=== PATIENT | female | born 1985 | race African-American/Black ===

== ENCOUNTER 2017-01-07 02:08 | Emergency (ER) | payer SELFPAY ==
[~2017-01-07] VITALS: Ht 162.6 cm; Wt 77.1 kg
[~2017-01-07 02:08] MED LIST: NKM
[2017-01-07 02:10] VITALS: BP 117/70
[2017-01-07] MEDS ORDERED: Lidocaine 1% MPF 10mg/ml 5ml INJ ONE (03:30)
[2017-01-07] MEDS ORDERED: IBUPROFEN600 MG ORAL (03:44)
[2017-01-07] MEDS ORDERED: Tetanus/Diptheria/Pertussis Vaccine 0.5ml Syr IM ONE (03:45)
[2017-01-07 04:05] VITALS: BP 115/72
--- NOTE | 2017-01-07 07:36 | Emergency Room Report ---
History of Present Illness General Chief Complaint: Laceration Source: Patient Present Illness HPI Patient 31-year-old female who presented after a laceration to her buttocks as well as to her left hand. The patient reportedly was cleaning a sink which subsequently reportedly broke. She reports having injury to her finger and as well as to her right buttock. She denies other injuries. Injury occurred at home. Allergies: Coded Allergies: No Known Allergies (Unverified , 01/07/17) Patient History Past Medical History: see triage record Last Menstrual Period: last week Reviewed Nursing Documentation: PMH: Agreed, PSxH: Agreed Nursing Documentation-PMH Past Medical History: No Stated History Review of Systems All Other Systems: negative except mentioned in HPI Physical Exam Vital Signs Date Time Temp Pulse Resp B/P Pulse Ox O2 Delivery O2 Flow Rate FiO2 01/07/17 01:48 98.6 109 16 117/70 99 Room Air General Appearance: well appearing, no apparent distress, alert, GCS 15 Head: normocephalic, atraumatic ENT: hearing grossly normal, normal voice Neck: full range of motion, supple Respiratory: no respiratory distress, speaking full sentences Cardiovascular #1: normal inspection, normal peripheral pulses, regular rate, rhythm Musculoskeletal: normal inspection, no calf tenderness Neurologic: normal inspection, alert, oriented x3, responsive, normal gait Psychiatric: mood/affect normal Skin: no rash Procedures Laceration/Wound Repair Laceration/Wound Repair : Consent: Verbal Wound's Depth, Shape: superficial Wound Length (cm): 1 Wound Explored: no foreign body removed Irrigated w/ Saline (ccs): 20 Betadine Prep?: Yes Anesthesia: 1% Lidocaine Wound Debrided: minimal Wound Repaired With: sutures Suture Size/Type: 5:0 Number of Sutures: 2 Patient Tolerated: Well Complications: None Medical Decision Making Diagnostic Impression: Primary Impression: Laceration of buttock Additional Impression: Hand laceration ER Course Patient presented for laceration. Differential diagnoses included foreign body , nerve injury, arterial injury among others.X-ray imaging of the right hand 3 view interpreted by me showed normal Without evident fracture or foreign body.The patient is advised to follow up with primary care doctor in 1-2 days. Patient is advised to return if any worsening condition or if any changes in status that are concerning. Other X-Ray Diagnostic Results Other X-Ray Diagnostic Results : # of Views/Limited Vs Complete: 3 View Indication: Pain EP Interpretation: Yes Interpretation: no dislocation, no soft tissue swelling, no fractures Impression: No acute disease Interpreting ER Provider: Electronically signed by Dr. Joon Carl M.D. Last Vital Signs Date Time Temp Pulse Resp B/P Pulse Ox O2 Delivery O2 Flow Rate FiO2 01/07/17 04:05 98.4 98 15 115/72 100 Room Air Disposition: HOME, SELF-CARE Condition: Stable Scripts Ibuprofen* (MOTRIN*) 600 Mg Tablet 600 MG ORAL Q8H Y for For Pain, #30 TAB 0 Refills Prov: Joon Carl 01/07/17 Referrals: NOT CHOSEN IPA/MD,REFERRING (PCP) Patient Instructions: Laceration Care, Adult, Nonsutured Laceration Care Joon Carl Jan 07, 2017 07:36
--- NOTE | 2017-01-07 11:08 | Diagnostic Imaging Report ---
Indication: PAIN Technique: 3 views left hand Comparison: none Findings: No acute fractures. No dislocations. Joint spaces are preserved. Impression: Negative
== END 2017-01-07 04:05 | disposition home or self-care (01) ==
LOC: EDBD 02:08 → EMR 02:40
DX: S31.811A Laceration without foreign body of right buttock, initial encounter (principal); S61.412A Laceration without foreign body of left hand, initial encounter; W45.8XXA Other foreign body or object entering through skin, initial encounter; Y93.9 Activity, unspecified; Y92.009 Unspecified place in unspecified non-institutional (private) residence as the place of occurrence of the external cause; Z23 Encounter for immunization
CPT/HCPCS: 90471; 90715; 96372

== ENCOUNTER 2017-02-24 15:52 | Emergency (ER) | payer MEDICAID ==
[~2017-02-24] VITALS: Ht 160 cm; Wt 79.4 kg
[~2017-02-24 15:52] MED LIST changes: +IBUPROFEN600 MG ORAL
[2017-02-24 16:04] VITALS: BP 109/77
[2017-02-24] MEDS ORDERED: NKM (16:09)
[2017-02-24 16:41] LABS: KETONES,URINE NEGATIVE (NEGATIVE); LEUKOCYTE ESTERASE ,URINE 3+ (NEGATIVE); NITRITE,URINE NEGATIVE (NEGATIVE); PH,URINE 5 (4.5-8.0); PROTEIN,URINE 2+ (NEGATIVE); UROBILINOGEN,URINE 1 MG/DL (0.0-1.0)
[2017-02-24 16:45] LABS: APPEARANCE,URINE SLIGHTLY CLOUDY
[2017-02-24 16:55] LABS: BACTERIA,URINE MODERATE /HPF; SQUAMOUS EPITHELIAL CELL,UR MODERATE /LPF (NONE/OCC)
[2017-02-24 17:15] LABS: BASOPHILS % (AUTO) 1.6 % (0.0-2.0); EOSINOPHILS % (AUTO) 1.5 % (0.0-3.0); LYMPHOCYTES % (AUTO) 25.9 % (20.0-45.0); MEAN CORPUSCULAR HEMOGLOBIN 33.4 PG (27.0-31.0); MEAN CORPUSCULAR HGB CONC 36.4 G/DL (32.0-36.0); MEAN CORPUSCULAR VOLUME 92 FL (80-99); MEAN PLATELET VOLUME 7.8 FL (6.5-10.1); MONOCYTES % (AUTO) 4.7 % (1.0-10.0); NEUTROPHILS % (AUTO) 66.3 % (45.0-75.0); PLATELET COUNT 266 K/UL (150-450); RED BLOOD COUNT 4.16 M/UL (4.20-5.40); RED CELL DISTRIBUTION WIDTH 11.4 % (11.6-14.8); WHITE BLOOD COUNT 10.9 K/UL (4.8-10.8)
[2017-02-24 17:18] LABS: INR 0.9 (0.9-1.1); PROTHROMBIN TIME 9.9 SEC (9.30-11.50)
[2017-02-24 17:28] LABS: ALANINE AMINOTRANSFERASE 11 U/L (3-33); ALBUMIN/GLOBULIN RATIO 1.3 (1.0-2.7); ANION GAP 14 (5-15); ASPARTATE AMINO TRANSFERASE 17 U/L (5-40); CALCIUM 9.3 mg/dL (8.6-10.2); CARBON DIOXIDE 23 mEQ/L (20-30); CHLORIDE 98 mEQ/L (98-107); CREATININE 1.2 mg/dL (0.5-0.9); GLOMERULAR FILTRATION RATE > 60 mL/min (>60); HEMOLYSIS 3; LIPASE 32 U/L (< 60); POTASSIUM 3.9 mEQ/L (3.4-4.9); SODIUM 135 mEQ/L (135-145); TOTAL PROTEIN 7.7 g/dL (6.6-8.7)
[2017-02-24] MEDS ORDERED: ZOFRAN4 M3 ORAL (18:22)
[2017-02-24] MEDS ORDERED: CEPHALEXIN500 MG ORAL (18:22)
[2017-02-24] MEDS ORDERED: TYLENOL EXTRA500 MG ORAL (18:22)
[2017-02-24 19:04] VITALS: BP 109/77
--- NOTE | 2017-02-24 22:51 | Emergency Room Report ---
History of Present Illness General Chief Complaint: Abdominal Pain Source: Patient Present Illness [facility] The patient is a 32-year-old female presenting for possible and vaginal bleeding. She states that last normal menstrual period was 01/14. She took an at-home test one week prior which was positive. She then began to have abdominal cramping and vaginal bleeding this morning. Pain is an 8/10 dull ache and does not radiate from the midabdomen. No known provoking or relieving factors. She denies other symptoms including nausea, vomiting, fever , chills, back pain, shortness of breath, rash Allergies: Coded Allergies: No Known Allergies (Unverified , 01/07/17) Patient History Past Medical History: see triage record Pertinent Family History: none Last Menstrual Period: 01/14/17 Now: Yes - Possible Reviewed Nursing Documentation: PMH: Agreed, PSxH: Agreed Nursing Documentation-PMH Past Medical History: No Stated History Review of Systems All Other Systems: negative except mentioned in HPI Physical Exam Vital Signs Date Time Temp Pulse Resp B/P (MAP) Pulse Ox O2 Delivery O2 Flow Rate FiO2 02/24/17 16:04 98.2 94 16 109/77 98 Sp02 EP Interpretation: reviewed, normal General Appearance: no apparent distress, alert, GCS 15, non-toxic Head: normocephalic, atraumatic Eyes: bilateral eye normal inspection, bilateral eye PERRL ENT: hearing grossly normal, normal pharynx, no angioedema, normal voice Neck: full range of motion, supple/symm/no masses Respiratory: chest non-tender, lungs clear, normal breath sounds, speaking full sentences Cardiovascular #1: regular rate, rhythm, no edema Gastrointestinal: normal bowel sounds, soft, non-distended, no guarding, no rebound, tenderness - suprapubic Genitourinary: normal inspection, no CVA tenderness Musculoskeletal: back normal, gait/station normal, normal range of motion, non- tender Neurologic: alert, oriented x3, responsive, motor strength/tone normal, sensory intact, speech normal Psychiatric: judgement/insight normal, memory normal, mood/affect normal, no suicidal/homicidal ideation Medical Decision Making PA Attestation Dr. Palomo is my supervising physician. Patient management was discussed with my supervising physician Diagnostic Impression: Primary Impression: Miscarriage ER Course The patient is a 32-year-old female presenting for and vaginal bleeding Differential diagnoses considered include but not limited to Early , threatened , incomplete , complete , ectopic , hemorrhagic cyst Physical exam: Afebrile. No apparent distress Tenderness to palpation over suprapubic region only. No CVA tenderness Otherwise exam is unremarkable Both urine and beta hCG are negative. Urinalysis shows moderate bacteria as well as 5+ occult blood and red blood cells OB ultrasound shows no signs of intrauterine or ectopic The patient will be discharged home with a prescription for Antibiotics, pain medication, and anti-medic. She will followup with her OB and primary doctor as soon as possible. ER precautions are given Laboratory Tests Test 02/24/17 16:15 02/24/17 16:36 Urine Color Yellow Urine Appearance Slightly cloudy Urine pH 5 (4.5-8.0) Urine Specific [place] 1.020 (1.005-1.035) Urine Protein 2+ (NEGATIVE) H Urine Glucose (UA) Negative (NEGATIVE) Urine Ketones Negative (NEGATIVE) Urine Occult Blood 5+ (NEGATIVE) H Urine Nitrite Negative (NEGATIVE) Urine Bilirubin Negative (NEGATIVE) Urine Urobilinogen 1 MG/DL (0.0-1.0) H Urine Leukocyte Esterase 3+ (NEGATIVE) H Urine RBC 10-15 /HPF (0 - 2) H Urine WBC 5-10 /HPF (0 - 2) H Urine Squamous Epithelial Cells Moderate /LPF (NONE/OCC) H Urine Bacteria Moderate /HPF (NONE) H Urine HCG, Qualitative Negative White Blood Count 10.9 K/UL (4.8-10.8) H Red Blood Count 4.16 M/UL (4.20-5.40) L Hemoglobin 13.9 G/DL (12.0-16.0) Hematocrit 38.3 % (37.0-47.0) Mean Corpuscular Volume 92 FL (80-99) Mean Corpuscular Hemoglobin 33.4 PG (27.0-31.0) H Mean Corpuscular Hemoglobin Concent 36.4 G/DL (32.0-36.0) H Red Cell Distribution Width 11.4 % (11.6-14.8) L Platelet Count 266 K/UL (150-450) Mean Platelet Volume 7.8 FL (6.5-10.1) Neutrophils (%) (Auto) 66.3 % (45.0-75.0) Lymphocytes (%) (Auto) 25.9 % (20.0-45.0) Monocytes (%) (Auto) 4.7 % (1.0-10.0) Eosinophils (%) (Auto) 1.5 % (0.0-3.0) Basophils (%) (Auto) 1.6 % (0.0-2.0) Prothrombin Time 9.9 SEC (9.30-11.50) Prothrombin Time INR 0.9 (0.9-1.1) PTT 25 SEC (23-33) Sodium Level 135 mEQ/L (135-145) Potassium Level 3.9 mEQ/L (3.4-4.9) Chloride Level 98 mEQ/L (98-107) Carbon Dioxide Level 23 mEQ/L (20-30) Anion Gap 14 (5-15) Blood Urea Nitrogen 15 mg/dL (7-23) Creatinine 1.2 mg/dL (0.5-0.9) H Estimate Glomerular Filtration Rate > 60 mL/min (>60) Glucose Level 92 mg/dL (74-106) Calcium Level 9.3 mg/dL (8.6-10.2) Total Bilirubin 0.4 mg/dL (0.0-1.2) Aspartate Amino Transferase (AST) 17 U/L (5-40) Alanine Aminotransferase (ALT) 11 U/L (3-33) Alkaline Phosphatase 45 U/L (35-104) Total Protein 7.7 g/dL (6.6-8.7) Albumin 4.4 g/dL (3.5-5.2) Globulin 3.3 g/dL Albumin/Globulin Ratio 1.3 (1.0-2.7) Lipase 32 U/L (< 60) Human Chorionic Gonadotropin, Quant < 1 mIU/mL Lab Results Impression Blood work shows mild leukocytosis at 10.9 Urine and beta hCG both negative Urinalysis shows occult blood with moderate bacteria CT/MRI/US Diagnostic Results CT/MRI/US Diagnostic Results : Imaging Test Ordered: OB US Impression Unremarkable. No ectopic. No IUP Last Vital Signs Date Time Temp Pulse Resp B/P (MAP) Pulse Ox O2 Delivery O2 Flow Rate FiO2 02/24/17 19:04 98.2 94 16 109/77 98 Status: improved Disposition: HOME, SELF-CARE Condition: Improved Scripts Ondansetron* (ZOFRAN*) 4 Mg Tablet 4 MG ORAL Q6H Y for Nausea & Vomiting, #30 TAB Prov: RADHA VELASQUEZ. 02/24/17 Cephalexin* (KEFLEX*) 500 Mg Capsule 500 MG ORAL EVERY 6 HOURS, #28 CAP Prov: RADHA VELASQUEZ.A. 02/24/17 Acetaminophen* (TYLENOL EXTRA STRENGTH*) 500 Mg Tablet 500 MG ORAL Q8H Y for Prn Headache/Temp > 101, #30 TAB 0 Refills Prov: RADHA VELASQUEZ.A. 02/24/17 Patient Instructions: Miscarriage Additional Instructions: I discussed my findings with the patient. All questions and concerns have been answered. Treatment and medication compliance have been addressed. I advised the patient that they need to follow up with PMD in 3-5 days. Return to ED if symptoms worsen, new symptoms arise, or if needed for any reason. Patient verbalized understanding of discharge instructions. RADHA VELASQUEZ Feb 24, 2017 22:51
--- NOTE | 2017-02-25 11:00 | Diagnostic Imaging Report ---
Indication:Lower abdominal and pelvic pain Technique: Grayscale and duplex Doppler imaging of the pelvis performed utilizing a transabdominal scan and endovaginal scan. Comparison: None Findings: The uterus appears normal. There are cervical nabothian cyst present. Endometrial stripe is abnormal in appearance and measures 7 mm. There is dopplerable blood flow within both ovaries. Few follicles are noted but the ovaries are otherwise unremarkable. Uterus measures proximally 9 x 5.3 x 4.9 cm. Right ovary 3.3 x 3 x 1.5 cm. Left ovary 2.1 x 2.8 x 1.0 CM. In Impression: Negative exam
== END 2017-02-24 19:05 | disposition home or self-care (01) ==
LOC: EMR 17:14
DX: O03.9 Complete or unspecified spontaneous abortion without complication (principal)
CPT/HCPCS: 36415; 76856; 80053; 81003; 81025; 83690; 84702; 85025; 85610; 85730; 87086; 99284

== ENCOUNTER 2018-02-27 01:50 | Emergency (ER) | payer SELFPAY ==
[~2018-02-27] VITALS: Ht 160 cm; Wt 80.7 kg
[~2018-02-27 01:50] MED LIST changes: +CEPHALEXIN500 MG ORAL; +TYLENOL EXTRA500 MG ORAL; +ZOFRAN4 M3 ORAL
--- NOTE | 2018-02-27 02:10 | Emergency Room Report ---
History of Present Illness General Chief Complaint: Pain Source: Patient Present Illness [facility] This is a 33-year-old female who has no past medical history. She presents with chief point of left hip pain. Pain been ongoing for months but now start clicking and popping. Worse with movement. Worse with walking. No fever chills but no nausea no vomiting. No trauma. Pain is 8 out of 10. Allergies: Coded Allergies: No Known Allergies (Unverified , 01/07/17) Patient History Past Medical History: see triage record, old chart reviewed Past Surgical History: none Pertinent Family History: none Social History: Denies: smoking Last Menstrual Period: 02/24/2018 Now: No Immunizations: other Reviewed Nursing Documentation: PMH: Agreed; PSxH: Agreed Nursing Documentation-PMH Past Medical History: No Stated History Review of Systems Eye: Denies: eye pain, blurred vision ENT: Denies: ear pain, nose congestion, throat swelling Respiratory: Denies: cough, shortness of breath Cardiovascular: Denies: chest pain, palpitations Gastrointestinal: Denies: abdominal pain, diarrhea, nausea, vomiting Musculoskeletal: Reports: joint pain; Denies: back pain Skin: Denies: rash Neurological: Denies: headache, numbness Endocrine: Denies: increased thirst, increased urine Hematologic/Lymphatic: Denies: easy bruising All Other Systems: negative except mentioned in HPI Physical Exam Vital Signs Date Time Temp Pulse Resp B/P (MAP) Pulse Ox O2 Delivery O2 Flow Rate FiO2 02/27/18 01:57 98.1 117 24 129/85 99 Room Air 98.1 vitals with tachycardia Sp02 EP Interpretation: reviewed, normal General Appearance: well appearing, no apparent distress, alert Head: normocephalic, atraumatic Eyes: bilateral eye PERRL, bilateral eye EOMI ENT: hearing grossly normal, normal pharynx Neck: full range of motion, supple, no meningismus Respiratory: chest non-tender, lungs clear, normal breath sounds Cardiovascular #1: regular rate, rhythm, no murmur Gastrointestinal: normal bowel sounds, non tender, no mass, no organomegaly, no bruit, non-distended Musculoskeletal: back normal, gait/station normal, normal range of motion, tender - Over the left hip with motion. no deformity. Neurologic: alert, oriented x3 Psychiatric: mood/affect normal Skin: warm/dry Medical Decision Making Diagnostic Impression: Primary Impression: Hip bursitis, left Qualified Codes: M70.72 - Other bursitis of hip, left hip ER Course Patient with hip pain and popping sensation. This is most likely arthritis/ bursitis. No evidence of septic joint. No evidence of fracture dislocation. We'll discharge home. Other X-Ray Diagnostic Results Other X-Ray Diagnostic Results : X-Ray ordered: Left hip x-rays # of Views/Limited Vs Complete: 3 View Indication: Pain EP Interpretation: Yes Interpretation: no dislocation, no soft tissue swelling, no fractures Impression: No acute disease Electronically Signed by: Eliot Alonso MD Last Vital Signs Date Time Temp Pulse Resp B/P (MAP) Pulse Ox O2 Delivery O2 Flow Rate FiO2 02/27/18 01:57 98.1 117 24 129/85 99 Room Air 98.1 Status: improved Disposition: HOME, SELF-CARE Condition: Stable Scripts Ibuprofen* (MOTRIN*) 600 Mg Tablet 600 MG ORAL THREE TIMES A DAY, #30 TAB 0 Refills Prov: ELIOT ALONSO M.D. 02/27/18 Additional Instructions: Follow-up with your doctor in 7 days. Return if symptom worsen. You may benefit from an MRI if continue with pain. ELIOT ALONSO M.D. Feb 27, 2018 02:10
[2018-02-27 02:15] VITALS: BP 129/85
[2018-02-27] MEDS ORDERED: IBUPROFEN600 MG ORAL (02:53)
[2018-02-27 03:04] VITALS: BP 129/85
--- NOTE | 2018-02-27 11:14 | Diagnostic Imaging Report ---
Indication: Left hip pain for several months with clicking and popping Technique: 2 views of the left hip Comparison: none Findings: No acute fractures. No dislocations. The joint spaces are preserved. Impression: Negative
== END 2018-02-27 03:06 | disposition home or self-care (01) ==
LOC: EMR 02:18
DX: M70.72 Other bursitis of hip, left hip (principal)
CPT/HCPCS: 73502; 99283

== ENCOUNTER 2018-03-13 12:08 | Emergency (ER) | payer SELFPAY ==
[~2018-03-13] VITALS: Ht 160 cm; Wt 63.5 kg
--- NOTE | 2018-03-13 12:44 | Emergency Room Report ---
History of Present Illness General Chief Complaint: Pain Source: Patient Present Illness HPI 33-year-old female patient presents ER complaining of right big toe pain 1 day. Reports that she was walking yesterday when her sandal got caught in the sidewalk and pulled backward. States that she believes she pulled her toe backwards at that time too. Denies bleeding or damaged nail. Reports able to ambulate. Reports took pain medicine last night has not taken anything today. denies fall to ground or hitting head. Allergies: Coded Allergies: No Known Allergies (Unverified , 01/07/17) Patient History Past Medical History: see triage record Last Menstrual Period: 2 weeks ago Now: No Reviewed Nursing Documentation: PMH: Agreed; PSxH: Agreed Nursing Documentation-PMH Past Medical History: No Stated History Review of Systems All Other Systems: negative except mentioned in HPI Physical Exam Vital Signs Date Time Temp Pulse Resp B/P (MAP) Pulse Ox O2 Delivery O2 Flow Rate FiO2 03/13/18 12:12 99.5 97 18 115/74 88 Room Air 99.5 Sp02 EP Interpretation: reviewed, normal General Appearance: well appearing, no apparent distress, alert, GCS 15, non- toxic Head: normocephalic, atraumatic Eyes: bilateral eye normal inspection, bilateral eye PERRL Neck: full range of motion Respiratory: lungs clear, normal breath sounds, no rhonchi, no respiratory distress, no accessory muscle use, no wheezing, speaking full sentences Cardiovascular #1: regular rate, rhythm, no edema Cardiovascular #2: 2+ dorsalis pedis (R), 2+ dorsalis pedis (L) Musculoskeletal: back normal, digits/nails normal, gait/station normal, no calf tenderness, decreased range of motion - secondary to pain, Maddy's Sign negative, swelling - mild, other - no ecchymosis, no nail bed damage, NVI, sensation intact to light, tender - lateral aspect of first MTP on right foot Neurologic: alert, oriented x3, responsive, motor strength/tone normal, sensory intact Psychiatric: mood/affect normal Skin: no rash Medical Decision Making PA Attestation Dr. Sellers is my supervising Physician whom patient management has been discussed with. Diagnostic Impression: Primary Impression: Foot sprain ER Course Pt. presents to the ED c/o right big toe pain. Ddx considered but are not limited to fracture, sprain, strain, contusion, dislocation. No erythema, no warmth to touch, no fever, nontoxic appearing, low suspicion for septic joint. Vital signs: are WNL, pt. is afebrile Ordered X-ray and pain medication. ER COURSE Provided with pain medication. An X-ray of the right foot shows no acute disease, degenerative changes noted per the preliminary reading. likely sprain causing pain symptoms. Dennis tape Sukumar wrap was applied to the big toe and forefoot and was checked afterwards by me showing good alignment and support with distal neurovascular functioning intact. Patient declined crutches. Provided with Toradol for pain due to patient continued complaint of pain. Patient instructed on RICE method: rest, ice, compression, elevation. Patient instructed on rest, ice and heat. Patient instructed to be WBAT Contact information for orthopedic urgent care provided, follow-up with urgent care if unable to followup with primary care provider and get referral to [facility] specialist. Followup with primary care provider. Discuss referral to ortho/pain management/ PT as needed. Discuss further imaging with MRI/CT as needed. DISCHARGE: -Rx provided for Tylenol for pain symptoms. At this time pt. is stable for d/c to home. Patient is resting comfortably, in no acute distress, nontoxic appearing, talking without difficulty. Will provide printed patient care instructions, and any necessary prescriptions. Patient instructed to follow with primary care provider in 3 - 5 days and to request further follow-up as needed. Care plan and follow up instructions have been discussed with the patient prior to discharge. Take medications as directed. Patient questions asked and answered. Patient reports understanding and agreement to treatment plan. ER precautions given, patient instructed to return to ER immediately for any new or worsening of symptoms. - Please note that this Emergency Department Report was dictated using [employer] construction foreman technology software, occasionally this can lead to erroneous entry secondary to interpretation by the dictation equipment. Other X-Ray Diagnostic Results Other X-Ray Diagnostic Results : X-Ray ordered: right foot # of Views/Limited Vs Complete: 3 View Indication: Pain EP Interpretation: Yes PA Xray: Interpretation reviewed, by supervising MD, and agrees with findings. Interpretation: no dislocation, no soft tissue swelling, no fractures Impression: No acute disease PA Scribe Text Eitan Green PA-C Last Vital Signs Date Time Temp Pulse Resp B/P (MAP) Pulse Ox O2 Delivery O2 Flow Rate FiO2 03/13/18 12:12 99.5 97 18 115/74 88 Room Air 99.5 Disposition: HOME, SELF-CARE Condition: Stable Scripts Acetaminophen* (TYLENOL EXTRA STRENGTH*) 500 Mg Tablet 500 MG ORAL Q8H PRN for Prn Headache/Temp > 101, #30 TAB 0 Refills Prov: Filiberto Green 03/13/18 Referrals: NOT CHOSEN IPA/MD,REFERRING (PCP) Patient Instructions: Foot Contusion, [id number], Foot Sprain Additional Instructions: Patient instructed to follow up with primary care provider and discuss further referral to orthopedics/physical therapy/pain management as needed. If unable to followup with PCP, followup with orthopedic urgent care in 5-7 days , call to schedule appointment. Patient instructed on RICE method: rest, ice, compression, elevation. Patient instructed to WBAT. Take medications as directed. Patient questions asked and answered. ER precautions given, patient instructed to return to ER immediately for any new or worsening of symptoms. [facility] [address] [facility], [address] [email or web address] Filiberto Green Mar 13, 2018 12:44
[2018-03-13] MEDS ORDERED: Acetaminophen 500mg (ES) tab ORAL ONE (12:45)
[2018-03-13] MEDS ORDERED: TYLENOL EXTRA500 MG ORAL (13:32)
[2018-03-13 13:45] VITALS: BP 115/74
[2018-03-13] MEDS ORDERED: Ketorolac 30mg Inj IM ONE (13:45)
--- NOTE | 2018-03-13 14:33 | Diagnostic Imaging Report ---
Indication: Pain Technique: 3 views right foot Comparison: none Findings: No acute fractures. No dislocations. There is a small plantar spur. There is degenerative joint space narrowing and proliferative change about the first metatarsophalangeal joint. The remaining joint spaces are preserved Impression: Degenerative changes of the first metatarsophalangeal joint No acute bony trauma
[2018-03-13 14:44] VITALS: BP 115/74
== END 2018-03-13 14:46 | disposition home or self-care (01) ==
LOC: EMR 12:33
DX: S93.601A Unspecified sprain of right foot, initial encounter (principal); W23.1XXA Caught, crushed, jammed, or pinched between stationary objects, initial encounter; Y93.01 Activity, walking, marching and hiking; Y92.89 Other specified places as the place of occurrence of the external cause
CPT/HCPCS: 73630; 96372; 99283; J1885

== ENCOUNTER 2019-02-08 14:03 | Inpatient (IN) | payer MEDICAID ==
[~2019-02-08] VITALS: Ht 160 cm; Wt 74.4 kg
[2019-02-08] MEDS ORDERED: NKM (14:21)
--- NOTE | 2019-02-08 14:30 | NUR ---
ED Nurse Note: Patient walked in to ER due to left leg pain 03/25. Stated that left leg was red and awollen since Friday. Patient presented agitated, was screaming in hallway, AAO x4, VSS at this time, skin is dry warm to touch.
[2019-02-08] MEDS ORDERED: Ketorolac 30mg Inj IV ONE (14:45)
[2019-02-08 15:32] VITALS: BP 121/71
[2019-02-08] MEDS ORDERED: Morphine Sulfate 2mg/ml Inj(IV/IM USE ONLY) IVP ONE (15:45)
[2019-02-08] MEDS ORDERED: Vancomycin 1.5gm/D5W Premix 275 ML IVPB SCH (15:45)
[2019-02-08] MEDS ORDERED: Piperacillin/Tazobactam 3.375 GM in NS 110 ML IVPB ONE (15:45)
[2019-02-08 15:56] LABS: HEMOGLOBIN 15.3 G/DL (12.0-16.0); MEAN CORPUSCULAR VOLUME 92 FL (80-99); PLATELET COUNT 213 K/UL (150-450); RED CELL DISTRIBUTION WIDTH 11.4 % (11.6-14.8); WHITE BLOOD COUNT 11.2 K/UL (4.8-10.8)
[2019-02-08 16:06] LABS: ANION GAP 15 mmol/L (5-15); BLOOD UREA NITROGEN 8 mg/dL (7-18); CALCIUM 10.3 MG/DL (8.5-10.1); CARBON DIOXIDE 24 MMOL/L (21-32); CHLORIDE 97 MMOL/L (98-107); CREATININE 1.2 MG/DL (0.55-1.30); POTASSIUM 3.3 MMOL/L (3.5-5.1); SODIUM 136 MMOL/L (136-145)
[2019-02-08 16:28] LABS: ALANINE AMINOTRANSFERASE 22 U/L (12-78); ALBUMIN 3.6 G/DL (3.4-5.0); ALBUMIN/GLOBULIN RATIO 0.6 (1.0-2.7); ALKALINE PHOSPHATASE 77 U/L (46-116); ASPARTATE AMINO TRANSFERASE 24 U/L (15-37); BILIRUBIN,TOTAL 0.6 MG/DL (0.2-1.0)
[2019-02-08 16:46] LABS: INR 0.9 (0.9-1.1)
--- NOTE | 2019-02-08 16:59 | Emergency Room Report ---
History of Present Illness General Chief Complaint: Pain Source: Patient (Sugey Felipe) Present Illness HPI 34-year-old female with no significant past medical history here complaining of 10 out of 10 pain and swelling in left lower extremity x1 day. Patient denies any fall or injury. Patient reports that for the past week she has been increasing her water intake as she is doing a water only diet to cleanse her system. Patient also reports that she is usually immobile and sleeps in her car. Denies fever and chills however reports that this morning she woke up very weak and pain all over her body. Denies pain radiation. Denies tingling and numbness. Denies history of hypertension, diabetes, cardiac disease. Moderate cellulitis noted in the left lower extremity below the knee warm to touch. Patient has 2+ dorsalis pedis bilaterally. Denies chest pain, shortness of breath, palpitation, abdominal pain, nausea vomiting. Denies previous injury to the same leg. Denies any drug use and alcohol intake. Denies dizziness and syncope. Patient reports that her last menstrual period was 1 week ago and regular. Denies (Sugey Felipe) Allergies: Coded Allergies: No Known Allergies (Unverified , 01/07/17) Patient History Past Medical History: see triage record Past Surgical History: unable to obtain Pertinent Family History: none Social History: Reports: smoking - Daily tobacco smoker Now: No Immunizations: UTD Reviewed Nursing Documentation: PMH: Agreed; PSxH: Agreed (Sugey Felipe) Nursing Documentation-PMH Past Medical History: No Stated History (Sugey Felipe) Review of Systems All Other Systems: negative except mentioned in HPI (Sugey Felipe) Physical Exam Vital Signs Date Time Temp Pulse Resp B/P (MAP) Pulse Ox O2 Delivery O2 Flow Rate FiO2 02/08/19 14:18 99.5 99 16 121/71 (88) 98 Room Air Sp02 EP Interpretation: reviewed, normal General Appearance: no apparent distress, alert, GCS 15, non-toxic Head: normocephalic, atraumatic Eyes: bilateral eye normal inspection, bilateral eye PERRL ENT: hearing grossly normal, normal pharynx, no angioedema, normal voice Neck: full range of motion, supple/symm/no masses Respiratory: chest non-tender, lungs clear, normal breath sounds, no rhonchi, no wheezing, speaking full sentences Cardiovascular #1: normal inspection, regular rate, rhythm, no edema, no murmur , normal capillary refill Cardiovascular #2: 2+ dorsalis pedis (R), 2+ dorsalis pedis (L) Gastrointestinal: normal bowel sounds, non tender, soft, non-distended, no guarding, no rebound Rectal: deferred Genitourinary: no CVA tenderness Musculoskeletal: normal inspection, back normal, non-tender, no calf tenderness , swelling - Cellulitis of left lower extremity Neurologic: alert, oriented x3, responsive, motor strength/tone normal, sensory intact, speech normal Psychiatric: judgement/insight normal, memory normal, mood/affect normal, no suicidal/homicidal ideation Skin: no rash Lymphatic: no adenopathy (Sugey Felipe) Medical Decision Making PA Attestation All diagnoses and treatment plans were reviewed and discussed with my supervising physician Dr. Holbrook (Sugey Felipe) Diagnostic Impression: Primary Impression: Cellulitis of left lower leg Additional Impressions: Amphetamine abuse Hypokalemia ER Course 34-year-old female with no significant past medical history here complaining of 10 out of 10 pain and swelling in left lower extremity x1 day. Patient denies any fall or injury. Patient reports that for the past week she has been increasing her water intake as she is doing a water only diet to cleanse her system. Patient also reports that she is usually immobile and sleeps in her car. Denies fever and chills however reports that this morning she woke up very weak and pain all over her body. Denies pain radiation. Denies tingling and numbness. Denies history of hypertension, diabetes, cardiac disease. Moderate cellulitis noted in the left lower extremity below the knee warm to touch. Patient has 2+ dorsalis pedis bilaterally. Denies chest pain, shortness of breath, palpitation, abdominal pain, nausea vomiting. Denies previous injury to the same leg. Denies any drug use and alcohol intake. Denies dizziness and syncope. Patient reports that her last menstrual period was 1 week ago and regular. Denies Ddx considered but are not limited to : Cellulitis, DVT, superficial infection, abscess Vital signs: are WNL, pt. is afebrile H&PE are most consistent with: Cellulitis of left lower extremity ORDERS: Admission orders ED INTERVENTIONS: NS bolus, Toradol, morphine, Zosyn, and Patient was admitted with diagnosis of cellulitis to Dr. Novoa under supervision of DrJuan Pablo: Yusef pt stable at time of admission (Sugey Felipe) ER Course Please see above note. Patient examined by me. Serious cellulitis requiring IV antibiotics. Patient admitted to the hospital. Discussed with Dr. Acevedo. (Wolf Holbrook MD) Other X-Ray Diagnostic Results Other X-Ray Diagnostic Results : X-Ray ordered: Left tib-fib # of Views/Limited Vs Complete: 2 View Indication: Pain EP Interpretation: Yes PA Xray: Interpretation reviewed, by supervising MD, and agrees with findings. Interpretation: no dislocation, no soft tissue swelling, no fractures Impression: No acute disease Electronically Signed by: Sugey Pradhan PA-C (Sugey Felipe) CT/MRI/US Diagnostic Results CT/MRI/US Diagnostic Results : Imaging Test Ordered: duplex venous US Impression neg for DVT (Sugey Felipe) Last Vital Signs Date Time Temp Pulse Resp B/P (MAP) Pulse Ox O2 Delivery O2 Flow Rate FiO2 02/08/19 16:32 99.5 02/08/19 15:32 16 121/71 98 Room Air 02/08/19 14:18 99 (Sugey Felipe) Last Vital Signs Date Time Temp Pulse Resp B/P (MAP) Pulse Ox O2 Delivery O2 Flow Rate FiO2 02/09/19 00:00 98.4 87 17 106/73 (84) 100 02/08/19 21:00 Room Air (Wolf Holbrook MD) Disposition: ADMITTED INPATIENT Condition: Stable Referrals: NOT CHOSEN IPA/,REFERRING (PCP) Sugey Felipe Feb 08, 2019 16:59 Wolf Holbrook MD Feb 08, 2019 17:16
[2019-02-08] MEDS ORDERED: Vancomycin 1.5gm vial IVPB ONE (17:16)
--- NOTE | 2019-02-08 17:19 | NUR ---
ED Nurse Note: Unable to scan Vancomycin 1.5 g/vial. ER MD and pharmacy notifyed.
--- NOTE | 2019-02-08 17:50 | NUR ---
NURSE NOTES: Received phone report from JOSE ALFREDO Alatorre RN.
[2019-02-08 18:20] VITALS: BP 119/69
--- NOTE | 2019-02-08 18:20 | NUR ---
NURSE NOTES: Patient was admitted to room 312 via gurney from ER. Pt a/o x 4, in bed. Checked belongings list with pt.
--- NOTE | 2019-02-08 18:34 | NUR ---
ED Nurse Note: Patient was admited to MS due to celullitis. AAO x4, VSS at this time, skin is warm to touch. Patient was transfered to the unit viagurney with all belongings. Patient has Vancomycin and NaCl running.
--- NOTE | 2019-02-08 19:45 | NUR ---
NURSE NOTES: Receive a report from RICHARD Slade.
--- NOTE | 2019-02-08 19:50 | NUR ---
NURSE NOTES: Pt is awake and alert. No acute distress noted, lying in bed. Noted redness and non-pitting edema on left foot and calf. Pain is relieved on rest. Elevated with pillows. IV is running on right AC without infiltration. Provide facility orientation. Bed is locked and lowest. Call light within reach. Will continue to monitor. Call Dr. Novoa to verify orders.
[2019-02-08 20:00] VITALS: BP 110/70
[2019-02-08] MEDS: Enoxaparin 40mg Inj SUBQ SCH (20:13)
[2019-02-08] MEDS ORDERED: DiphenhydrAMINE 50mg/ml Inj IVP PRN (20:15)
[2019-02-08] MEDS ORDERED: traMADol 50mg tab ORAL PRN (20:15)
[2019-02-08 22:49] LABS: APPEARANCE,URINE CLOUDY; BILIRUBIN, URINE NEGATIVE (NEGATIVE); GLUCOSE, URINE (UA) NEGATIVE (NEGATIVE); KETONES,URINE NEGATIVE (NEGATIVE); LEUKOCYTE ESTERASE ,URINE 3+ (NEGATIVE); NITRITE,URINE NEGATIVE (NEGATIVE); PH,URINE 6 (4.5-8.0); PROTEIN,URINE 2+ (NEGATIVE); UROBILINOGEN,URINE 1 MG/DL (0.0-1.0)
[2019-02-08 22:51] LABS: COLOR,URINE YELLOW
[2019-02-09] VITALS: BP 106/73
--- NOTE | 2019-02-09 00:30 | NUR ---
NURSE NOTES: Pt complains for left leg pain. Provide prn pain medication and place bed side comodo. Will continue to monitor.
[2019-02-09 04:00] VITALS: BP 115/67
[2019-02-09] MEDS: Vancomycin 1.25gm/D5W 275ml IVPB SCH ×6 (04:59→16:22)
--- NOTE | 2019-02-09 06:30 | NUR ---
NURSE NOTES: Pt refuses to get blood work. Wants to hear lab results. Left a message to MD. Will continue to monitor.
--- NOTE | 2019-02-09 07:30 | NUR ---
HAND-OFF: Report given to RICHARD Caruso. Round is done. Pt is lying in bed and denies pain. Will continue to monitor.
--- NOTE | 2019-02-09 07:30 | NUR ---
NURSE NOTES: Patient is in bed awake and able to verbalize needs. Stable. Denies pain or SOB. Patient is upset about having her blood drawn in the morning. Patient made aware of plan of care and risks and benefits of lab draws. Patient stated that she understands. Patient encouraged to use call light for assistance, verbalized understanding. Patient is in bed in locked and lowest position with call light within reach. Will continue to monitor.
[2019-02-09 08:00] VITALS: BP 111/63
--- NOTE | 2019-02-09 09:00 | NUR ---
NURSE NOTES: Patient given PO meds. Patient given medication education. Plan of care discussed with patient, patient verbalized understanding. Patient provided fresh ice water. Patient has breakfast tray at bedside table, patient does not want to eat at this time. Patient wants to go back to sleep. Patient told RN she does not need anything else. All needs met at this time.
--- NOTE | 2019-02-09 09:54 | NUR ---
NURSE NOTES: Patient refused labs until tomorrow.
--- NOTE | 2019-02-09 10:44 | Diagnostic Imaging Report ---
Indication: Left lower extremity pain and swelling. Technique: Duplex Doppler imaging performed from the left common femoral vein to the popliteal vein. FINDINGS: Normal compressibility demonstrated from the common femoral vein to the popliteal vein. Respiratory phasicity and good augmentation demonstrated on waveform analysis. There is no evidence of thrombosis. IMPRESSION: No evidence of deep venous thrombosis within the left lower extremity.
--- NOTE | 2019-02-09 10:44 | Diagnostic Imaging Report ---
Indication: Left leg pain Comparison: None Findings: Two views of the left tibia and fibula were obtained. No acute fracture, malalignment, or periosteal reaction are identified. Soft tissues are unremarkable. Impression: No acute injury.
[2019-02-09 12:00] VITALS: BP 119/63
--- NOTE | 2019-02-09 12:00 | NUR ---
NURSE NOTES: Patient is angry and yelling at RN that her IV and IV pump are bothering her. Patient made aware of all risks and benefits of having IV access. RN offered to reinsert IV into different location to alleviate discomfort. Patient refused and yelled at RN that she will continue to bother staff. Patient refused IV fluids. Dr. Novoa made aware. Patient is in bed in locked and lowest position and call light within reach. All safety measures provided. Will continue to monitor.
--- NOTE | 2019-02-09 12:43 | Consultation ---
History of Present Illness General Date patient seen: Feb 09, 2019 Chief Complaint: Pain Present Illness HPI 34 y/o F with hx of tobacco abuse presented to ED on 02/08 with 1 day of LLE pain and swelling; pain described as 10/10 intensity. Patient reports that last week she has been increasing her water intake as a part of water only diet to cleanse her system Denied fall, injury, f/c, tingling, numbness, CP, SOB, abd pain, n/v. Allergies: Coded Allergies: No Known Allergies (Unverified , 01/07/17) Medication History Scheduled Ibuprofen* (Motrin*), 600 MG ORAL THREE TIMES A DAY No Known Medications* (NKM - No Known Medications*), 0 ., (Reported) Scheduled PRN Acetaminophen* (Tylenol Extra Strength*), 500 MG ORAL Q8H PRN for Prn Headache/ Temp > 101 Patient History Healthcare decision maker Resuscitation status Advanced Directive on File Patient History Narrative Pmhx: as above Shx: Reports: smoking - Daily tobacco smoker. Denies any drug use and alcohol intake Fhx: non contributory Review of Systems All Other Systems: negative except mentioned in HPI Physical Exam Physical Exam Narrative General Appearance: no apparent distress, alert, GCS 15, non-toxic Head: normocephalic, atraumatic Eyes: bilateral eye normal inspection, bilateral eye PERRL ENT: hearing grossly normal, normal pharynx, no angioedema, normal voice Neck: full range of motion, supple/symm/no masses Respiratory: chest non-tender, lungs clear, normal breath sounds, no rhonchi, no wheezing, speaking full sentences Cardiovascular : normal inspection, regular rate, rhythm, no edema, no murmur, normal capillary refill Gastrointestinal: normal bowel sounds, non tender, soft, non-distended, no guarding, no rebound Genitourinary: no CVA tenderness Musculoskeletal: normal inspection, back normal, non-tender, no calf tenderness , swelling - Cellulitis of left lower extremity Neurologic: alert, oriented x3, responsive, motor strength/tone normal, sensory intact, speech normal Psychiatric: judgement/insight normal, memory normal, mood/affect normal, no suicidal/homicidal ideation Skin: no rash Lymphatic: no adenopathy Last 24 Hour Vital Signs Date Time Temp Pulse Resp B/P (MAP) Pulse Ox O2 Delivery O2 Flow Rate FiO2 02/09/19 09:00 Room Air 02/09/19 08:00 98.4 71 16 111/63 (79) 97 02/09/19 04:00 98.6 86 18 115/67 (83) 99 02/09/19 00:00 98.4 87 17 106/73 (84) 100 02/08/19 21:00 Room Air 02/08/19 20:16 Room Air 02/08/19 20:00 98.6 84 16 110/70 (83) 100 02/08/19 18:32 99.5 16 121/71 98 Room Air 02/08/19 18:20 98.8 90 15 119/69 (86) 100 02/08/19 16:32 99.5 02/08/19 15:48 99.5 02/08/19 15:32 99.5 16 121/71 98 Room Air 02/08/19 14:18 99.5 99 16 121/71 (88) 98 Room Air Intake and Output 02/08/19 02/09/19 19:00 07:00 Intake Total 780 ml Balance 780 ml Intake Oral 480 ml IV Total 300 ml # Voids 1 2 Laboratory Tests Test 02/08/19 15:10 02/08/19 16:16 02/08/19 22:20 White Blood Count 11.2 K/UL (4.8-10.8) H Red Blood Count 4.90 M/UL (4.20-5.40) Hemoglobin 15.3 G/DL (12.0-16.0) Hematocrit 45.0 % (37.0-47.0) Mean Corpuscular Volume 92 FL (80-99) Mean Corpuscular Hemoglobin 31.2 PG (27.0-31.0) H Mean Corpuscular Hemoglobin Concent 34.1 G/DL (32.0-36.0) Red Cell Distribution Width 11.4 % (11.6-14.8) L Platelet Count 213 K/UL (150-450) Mean Platelet Volume 7.8 FL (6.5-10.1) Neutrophils (%) (Auto) % (45.0-75.0) Lymphocytes (%) (Auto) % (20.0-45.0) Monocytes (%) (Auto) % (1.0-10.0) Eosinophils (%) (Auto) % (0.0-3.0) Basophils (%) (Auto) % (0.0-2.0) Differential Total Cells Counted 100 Neutrophils % (Manual) 83 % (45-75) H Lymphocytes % (Manual) 10 % (20-45) L Monocytes % (Manual) 4 % (1-10) Eosinophils % (Manual) 0 % (0-3) Basophils % (Manual) 0 % (0-2) Band Neutrophils 3 % (0-8) Platelet Estimate Adequate Platelet Morphology Normal Red Blood Cell Morphology Normal Erythrocyte Sedimentation Rate 29 MM/HR (0-20) H Sodium Level 136 MMOL/L (136-145) Potassium Level 3.3 MMOL/L (3.5-5.1) L Chloride Level 97 MMOL/L (98-107) L Carbon Dioxide Level 24 MMOL/L (21-32) Anion Gap 15 mmol/L (5-15) Blood Urea Nitrogen 8 mg/dL (7-18) Creatinine 1.2 MG/DL (0.55-1.30) Estimat Glomerular Filtration Rate > 60 mL/min (>60) Glucose Level 108 MG/DL (74-106) H Lactic Acid Level 1.90 mmol/L (0.4-2.0) Calcium Level 10.3 MG/DL (8.5-10.1) H Total Bilirubin 0.6 MG/DL (0.2-1.0) Aspartate Amino Transf (AST/SGOT) 24 U/L (15-37) Alanine Aminotransferase (ALT/SGPT) 22 U/L (12-78) Alkaline Phosphatase 77 U/L (46-116) C-Reactive Protein, Quantitative 23.0 mg/dL (0.00-0.90) H Total Protein 9.4 G/DL (6.4-8.2) H Albumin 3.6 G/DL (3.4-5.0) Globulin 5.8 g/dL Albumin/Globulin Ratio 0.6 (1.0-2.7) L Prothrombin Time 9.9 SEC (9.30-11.50) Prothromb Time International Ratio 0.9 (0.9-1.1) Activated Partial Thromboplast Time 32 SEC (23-33) Urine Color Yellow Urine Appearance Cloudy Urine pH 6 (4.5-8.0) Urine Specific [place] 1.015 (1.005-1.035) Urine Protein 2+ (NEGATIVE) H Urine Glucose (UA) Negative (NEGATIVE) Urine Ketones Negative (NEGATIVE) Urine Blood 4+ (NEGATIVE) H Urine Nitrite Negative (NEGATIVE) Urine Bilirubin Negative (NEGATIVE) Urine Urobilinogen 1 MG/DL (0.0-1.0) H Urine Leukocyte Esterase 3+ (NEGATIVE) H Urine RBC 10-15 /HPF (0 - 2) H Urine WBC 5-10 /HPF (0 - 2) H Urine Squamous Epithelial Cells Few /LPF (NONE/OCC) Urine Amorphous Sediment Few /LPF (NONE) H Urine Bacteria Many /HPF (NONE) H Urine HCG, Qualitative Negative (NEGATIVE) Urine Opiates Screen Positive (NEGATIVE) H Urine Barbiturates Screen Negative (NEGATIVE) Phencyclidine (PCP) Screen Negative (NEGATIVE) Urine Amphetamines Screen Positive (NEGATIVE) H Urine Benzodiazepines Screen Negative (NEGATIVE) Urine Cocaine Screen Negative (NEGATIVE) Urine Marijuana (THC) Screen Positive (NEGATIVE) H Height (Feet): 5 Height (Inches): 3.00 Weight (Pounds): 165 Medications Current Medications Medications (Trade) Dose Ordered Sig/Stephenie Route PRN Reason Start Time Stop Time Status Last Admin Dose Admin Acetaminophen (Tylenol) 650 mg Q4H PRN ORAL Mild Pain (Pain Scale 1-3) 02/08/19 18:15 03/10/19 18:14 Bisacodyl (Dulcolax) 10 mg HSPRN PRN RECTAL Constipation 02/08/19 18:15 03/10/19 18:14 Dextrose (Dextrose 50%) 25 ml Q30M PRN IV Hypoglycemia 02/08/19 18:15 03/10/19 18:14 Dextrose (Dextrose 50%) 50 ml Q30M PRN IV Hypoglycemia 02/08/19 18:15 03/10/19 18:14 Diphenhydramine HCl (Benadryl) 25 mg Q8H PRN IVP Itching 02/08/19 20:15 03/10/19 20:14 Enoxaparin Sodium (Lovenox) 40 mg Q24H SUBQ 02/08/19 20:00 03/10/19 19:59 02/08/19 20:13 Famotidine (Pepcid) 40 mg DAILY ORAL 02/09/19 09:00 9/26/19 08:59 02/09/19 08:44 Ondansetron HCl (Zofran) 4 mg Q6H PRN IVP Nausea & Vomiting 02/08/19 18:15 03/10/19 18:14 Sodium Chloride 1,000 ml @ 75 mls/hr [id number] IV 02/08/19 20:15 03/10/19 20:14 02/08/19 22:23 Tramadol HCl (Ultram) 50 mg Q6H PRN ORAL pain>3 02/08/19 20:15 02/15/19 20:14 02/09/19 00:48 Vancomycin HCl (Vanco rx to dose) 1 ea DAILY PRN MISC Per rx protocol 02/08/19 18:15 03/10/19 18:14 Vancomycin HCl 1.25 gm/Dextrose 275 ml @ 183.333 mls/hr Q12HR@0400,1600 IVPB 02/09/19 04:00 02/14/19 03:59 02/09/19 04:59 Assessment/Plan Assessment/Plan: Abx: IV Vancomycin 02/08- Zosyn 02/08 x1 Assessment: LLE cellulitis -V. duplex: no DVT -Xray fibula/tibia: No acute injury. Afebrile No leukocytosis -u./a wbc 10-15, nit neg, leuk +3 Tobacco abuse Plan: -Continue IV Vancomycin #2 and Add Ancef for better strep coverage -will need 1-2 days of IV abx and then transition to oral abx pending improvement -f/u cx -Monitor CBC/CMP, temperatures Thank you for this consultation. Will continue to follow along with you. Discussed with Catrina Hartman M.D. Feb 09, 2019 12:43
--- NOTE | 2019-02-09 12:47 | NUR ---
NURSE NOTES: Dr. Ruiz made aware of patient's refusal of IV. Dr. Ruiz will make rounds to see patient.
[2019-02-09] MEDS ORDERED: ceFAZolin sod 1 GM in D5W 55 ML IVPB SCH (15:00)
--- NOTE | 2019-02-09 15:00 | NUR ---
NURSE NOTES: Patient yelling at RN because she wants linens. Patient is aware that RN and [employer] have been offering patient care throughout shift but she has been sleeping and refused care throughout shift. Patient stated, "I don't want to be woken up. I didn't come here to be more tired." Patient in bed in locked and lowest position with call light within reach.All safety measures provided.
--- NOTE | 2019-02-09 15:05 | NUR ---
NURSE NOTES: All linens and toiletries available for patient at bedside. Patient continues to be agitated.
--- NOTE | 2019-02-09 15:30 | NUR ---
NURSE NOTES: Patient refused antibiotics. Patient made aware of risks and benefits. Patient is upset and yelling at RN.
--- NOTE | 2019-02-09 15:40 | NUR ---
NURSE NOTES: While RN prepared IV antibiotic, patient yelled at RN and stated, the RN has to clean her restroom because it is the RN's job to clean bathrooms. RN told patient that she will help clean the restroom after administering medication because nurses have to follow the medication schedule ordered by the doctor and that IV antibiotics are timed. Patient yelled, "get out of my room." Patient made aware that IV antibiotics are due at this time and is aware of the importance of having antibiotics. Patient yelled, "I want to speak to the charge nurse." Charge nurse made aware and spoke with patient.
[2019-02-09 16:00] VITALS: BP 108/76
--- NOTE | 2019-02-09 16:00 | NUR ---
CASE MANAGEMENT: INITIAL REVIEW 34 YO F PRESENTED TO OUR ED FROM HOME CC: LEFT ANKLE, LEG, AND FOOT PAIN PMHx: NONE STATED SI:CELLULITIS OF LEFT LEG T 99.5 HR 99 RR 16 B/P 121/71 SATS 98% ON RA WBC 11.2 K 3.3 CL 97 GLU 108 CA 10.3 CRP 23 U TOX (+OPIATES. AMPHET. THC) UA (+UTI) IS: NS BOLUS X2 TORADOL IV X1 VANCO IV X1 VENOUS DUPLEX (IMPRESSION: No evidence of deep venous thrombosis within the left lower extremity) PATIENT ADMITTED TO MED/SURG 02/08/2019 @ 1555 DCP: PATIENT TO BE DISCHARGED TO HOME ONCE MEDICALLY CLEARED. PLAN OF CARE: ID CONSULT Addendum: 02/09/19 at 1804 by Deandra Belle CM INTERQUAL MET
--- NOTE | 2019-02-09 16:00 | NUR ---
NURSE NOTES: Patient refused care of RN. Patient does not want IV antibiotics Ancef and Vancomycin. Pharmacist aware. Dr. Ruiz aware.
--- NOTE | 2019-02-09 16:20 | NUR ---
NURSE NOTES: Patient reported pinkish vaginal discharge to charge nurse. Reported to Dr. Ruiz.
--- NOTE | 2019-02-09 16:56 | History and Physical Report ---
DATE OF ADMISSION: 02/08/2019 REASON FOR ADMISSION: Left leg pain. HISTORY OF PRESENT ILLNESS: The patient is a 34-year-old female with no real past significant medical history, presented to the emergency room complaining of left lower extremity pain, redness, and swelling. Ultrasound was negative for DVT. The patient states that she started noting some swelling and redness over the past week, starting on Friday. The patient reports that she usually is mobile, sleeps in her , is not in a cleanliness area and does walk barefoot. She denies any chest pain, nausea, vomiting, diarrhea, or shortness of breath. ALLERGIES: No known drug allergies PAST MEDICAL HISTORY: None. PAST SURGICAL HISTORY: None. FAMILY HISTORY: Noncontributory. SOCIAL HISTORY: Positive for tobacco, amphetamine, and marijuana use. REVIEW OF SYSTEMS: NEUROLOGIC: The patient denies headache, change in vision, syncope, or presyncopal episodes. CARDIOVASCULAR: No current chest pain, palpitations, or angina. PULMONARY: No difficulty breathing, productive cough, or sputum. GASTROINTESTINAL/GENITOURINARY: No change in her bowel habits. No nausea, vomiting, or diarrhea. ENDOCRINOLOGY: No night sweats, fevers, or chills. LABORATORY DATA: Laboratories dated February 08, 2019 sodium 136, potassium 3.3, creatinine 1.2. Toxicology positive for opioids, amphetamines, and marijuana. WBC 11.2, hemoglobin 15.3, and platelet count 313. PHYSICAL EXAMINATION: VITAL SIGNS: Blood pressure 115/67, respiratory rate 18, pulse 86, temperature 98.6, and 99% oxygen saturation. GENERAL: The patient awake, alert, not otherwise in distress. HEENT: Extraocular muscles intact. No lymphadenopathy noted. CARDIOVASCULAR: S1, S2. No rubs or gallops. PULMONARY: Clear to auscultation bilaterally. No rales, rhonchi, or wheezes. ABDOMEN: Nondistended and nontender. EXTREMITIES: Left lower extremity edema noted, non-pitting, erythematous, and warm to touch. ASSESSMENT AND PLAN: 1. Left lower extremity cellulitis, most likely due to underlying bacterial infections. The patient walks barefoot in uncleanliness areas. I started vancomycin and will defer further management to Infectious Disease. 2. DVT prophylaxis with Lovenox subcutaneous. 3. GI prophylaxis with famotidine. Nasir Novoa MD DR: PAUL JOB#: [id number] CC:
--- NOTE | 2019-02-09 17:25 | NUR ---
NURSE NOTES:I WAS INFORMED BY PRIMARY RN: (SULEMAN) RE:PT WAS YELLING AT AT HER,PER CONVERSATION WITH PT.STATED THAT THE NURSE IS NOT CHECKING ON HER TO CHECK IF SHES OKAY,AND SHE IS ALWAYS IN A JAIMES.TRIED TO CALM HER DOWN AND ASSISTED HER TO BATHROOM TO WASH UP,BED LINEN CHANGED WELL.EXPLAINED TO HER THAT SHE NEEDS TO BE TRANSFERRED TO ANOTHER ROOM BECAUSE THE AC IS NOT WORKING.PT.AGREED.PT.REQUESTED ALSO THAT SHE WANTS ANOTHER NURSE.EXPLAINED TO HER THAT IF SHE NEEDS HELP FR THIS TIME TO JUST PUT HER CALL LIGHT ON AND I WILL BE HELPING HER.PT.AGREED AND CALL LIGHT WITH IN REACH.ALL BELONGINGS WAS TRANSFERRED TO ROOM 319-2 AT 1725.
--- NOTE | 2019-02-09 18:00 | NUR ---
NURSE NOTES: Patient yelling in hallway and being disruptive. Charge nurse notified and attempted to redirect patient. Patient continues to yell. All safety measures provided.
--- NOTE | 2019-02-09 18:10 | NUR ---
NURSE NOTES: Patient is extremely angry and disruptive. Patient is verbally abusing RN, RN left patient with all safety measures provided. Security called, Tory came to assist unit staff deescalate situation. Nursing mill supervisor Azucena aware of situation. Patient continues to yell in hallway and is throwing things around the hospital room. Patient wants to go outside and smoke a cigarette. Will continue to monitor.
--- NOTE | 2019-02-09 18:10 | NUR ---
NURSE NOTES: Dr. Ruiz aware that patient refused medication. New orders read back and carried out.
--- NOTE | 2019-02-09 18:20 | NUR ---
NURSE NOTES:PT. VERY AGITATED,STANDING IN FRONT OF HER ROOM,SCREAMING/YELLING,AND VERBALLY ABUSIVE,CURSING,SAYING FOUL LANGUAGE AND POINTING HER INDEX FINGER ON MY FACE,THROW HER COMMODE UPSIDE DOWN,.SECURITY(SALMA)WAS CALLED AND CAME TO THE FLOOR.I TALKED TO PT.AGAIN BECAUSE SHE WAS COMPLAINING THAT SHE DID NOT GET HER ANTIBIOTIC. IV.EXPLAINED TO HER THAT PER CONVERSATION WITH HER NURSE THAT SHE REFUSED,PT.SAID"SHES LYING AND YOU BELIEVED HER?"IT WAS ALSO EXPLAINED TO HER THAT IV MED WAS D/DC AT 6PM AND IT WAS CHANGED TO TABLET.THE TIME,NAME OF THE NEW MED WAS WRITTEN AND HANDED TO HER PER HER REQUEST.AFTER READING SHE GOT MAD AND STATED"I NEED TO GET OUT OF HERE NOW TO SMOKE"SALMA(ENGRAVER AUTOMATIC)WAS PRESENT INSIDE THE ROOM DURING THE WHOLE TIME.PRIMARY RN(SULEMAN)MADE AWARE THAT PT WANTS TO GO DOWN.
--- NOTE | 2019-02-09 18:40 | NUR ---
NURSE NOTES: Patient wants to go outside to smoke. Nursing circus train supervisor Azucena aware. Patient is aware of hospital's nonsmoking policy. Patient continues to yell and wants to smoke. Patient assisted downstairs via wheelchair by security Tory. Patient assisted back to bed without incident by security.
--- NOTE | 2019-02-09 19:30 | NUR ---
HAND-OFF: Report given to Ana RAMOS. Patient is stable.
--- NOTE | 2019-02-09 19:30 | NUR ---
NURSE NOTES: Received report from RICHARD Caruso. Patient AAO x 4 and breathing unlabored without signs of distress, discomfort, or sob. Warmth, swelling, and redness noted on the left lower leg. Patient denies pain on the left lower leg at this time. IV on the right AC noted intact, dry, and clean. Bed placed at the lowest with brake and side rails up for safety. Call light placed within reach. Will continue to monitor and provide care as ordered.
--- NOTE | 2019-02-09 19:40 | NUR ---
NURSE NOTES: RN went into room together with preceptee to assess pt. RN tried to assess pt's foot, took off 2 layered socks on left foot gently and pt complained that RN wasn't gentle taking off her socks. Pt demands & states, "I want to talk to the head nurse. I want to go home & I dont like it here but I dont have a choice." Charge nurse Cathie called right away to the room. Charge nurse & RN tried to calm pt down by offering suggestions on how she prefers to have her foot assessed but pt continued to be verbally abusive by stating we watch [employer] videos in order to learn how to assess. Pt states, "I want to be treated like I'm your child." Re-assessed pt's foot more gently this time & pt more calm. Explained plan of care & pt verbalized understanding. Will continue to monitor.
--- NOTE | 2019-02-09 19:44 | NUR ---
Went into patients room. Patient crying. States "They just removed my sock without being gentle without compassion! I don't understand this!" Offered suggestions and asked pt how she wants to have her foot assessed by RN instead of how it was being done already. Pt agitated, verbally abusive and demeaning to us stating to us to watch you tube videos to learn how to assess a foot properly. Patient was asked what exactly does she want. Pt states "I WANT TO BE TREATED LIKE IM YOUR CHILD." The primary RN and patient agreed on plan of care.
[2019-02-09 20:00] VITALS: BP 134/94
--- NOTE | 2019-02-09 21:00 | NUR ---
NURSE NOTES: Patient explained of newly prescribed nicotine patch. Patient refused the medication saying "I don't need a nicotine patch if I'm not frustrated." Asked repeatedly to confirm that patient does need the medication and patient verbally confirmed that she does not need the patch and refused.
[2019-02-09] MEDS: Enoxaparin 40mg Inj SUBQ SCH (21:18)
--- NOTE | 2019-02-09 23:10 | NUR ---
NURSE NOTES: Urine specimen collected for UA & urine culture. Sent down to lab.
[2019-02-09 23:18] LABS: APPEARANCE,URINE CLEAR; BILIRUBIN, URINE NEGATIVE (NEGATIVE); COLOR,URINE PALE YELLOW; GLUCOSE, URINE (UA) NEGATIVE (NEGATIVE); KETONES,URINE NEGATIVE (NEGATIVE); LEUKOCYTE ESTERASE ,URINE 1+ (NEGATIVE); NITRITE,URINE NEGATIVE (NEGATIVE); PH,URINE 6 (4.5-8.0); PROTEIN,URINE 2+ (NEGATIVE); UROBILINOGEN,URINE NORMAL MG/DL (0.0-1.0)
[2019-02-10] VITALS: BP 131/82
[2019-02-10 04:00] VITALS: BP 104/71
--- NOTE | 2019-02-10 04:35 | NUR ---
NURSE NOTES: Patient was sleeping on the IV on right AC and was worried that she might have "messed up" the IV since she was bending the arm the whole time. Patient wanted RN to recheck the IV site. When recheck and flushed, IV was observed infiltrated and leaking. Patient wanted a new IV site and confirmed okay to insert new one. Explained the procedure to patient prior and during the IV insertion. New 22g IV was inserted on the right forearm, patent, intact, clean, and dry. Patient tolerated the procedure well. Will continue to monitor and provide care as ordered.
--- NOTE | 2019-02-10 06:53 | NUR ---
NURSE NOTES: Pt's IV got infiltrated. Removed IV & elevated right arm. Pt refused another IV reinsertion, RN explained risks & benefits but pt continued to refused. Informed Dr. Novoa of the above & said "K".
--- NOTE | 2019-02-10 07:30 | NUR ---
NURSE NOTES: Pt emotional mood varies from mild mannered to verbally belligerent. Pt accusing staff of lacking compassion " Everyone has been mean to me; except her pointing at the evening oriente. " I just want compassion and we will have a good day' Stores Naval asked is she had a concern that could be referred to socially responsible investment adviser, " I just need you to be gentle really gentle with me" Outgoing nurse reported that pt mood fluctuates. Call light is in reach. Denies pain at this time
--- NOTE | 2019-02-10 07:37 | NUR ---
HAND-OFF: Report given to RICHARD Porter.
[2019-02-10 08:00] VITALS: BP 108/62
--- NOTE | 2019-02-10 09:30 | NUR ---
NURSE NOTES: Machine Tester asked to asses pt legs and feet. Pedal pulses present. Pt required education in regards to comparring left foot to right foot. : " I dont know why you want to that keeping her leg under the blanket, I have big legs and you can not tell that they are swollen. Pt showed parts of legs where foot is swollen, reddened and hot in comparison to rt leg and foot. Pt did not respond. Her phone rang and she began speaking unclear not moving tongue " I do not know what wrong with me I can't move my tongue" Pt hung up phone with libertarian . Became speaking clearly. Dr Rausch made aware of odd bx
--- NOTE | 2019-02-10 09:41 | Nephrology Progress Note ---
Assessment/Plan Assessment/Plan: A/P 1) LLE Cellulitis Zyvoxx Has decined labs abnd IVs Defer to ID 2) Change in Speech?? question PSY ansd nurses noted normal speech patterns STAT CT Head to start 3) DVT prophylaxsis- lovenox 4) Polysubstance abuse Subjective Date patient seen: Feb 10, 2019 Time patient seen: 09:39 ROS Limited/Unobtainable: No Allergies: Coded Allergies: No Known Allergies (Unverified , 01/07/17) Subjective Patient has declined labs and IVs Also ?? change in speech Objective Last 24 Hour Vital Signs Date Time Temp Pulse Resp B/P (MAP) Pulse Ox O2 Delivery O2 Flow Rate FiO2 02/10/19 04:00 97.9 17 104/71 (82) 98 02/10/19 00:00 99.1 85 18 131/82 (98) 98 02/09/19 21:00 Room Air 02/09/19 20:00 99.4 98 18 134/94 (107) 100 02/09/19 16:00 98.0 62 18 108/76 (87) 99 02/09/19 12:00 98.3 85 16 119/63 (81) 98 Intake and Output 02/09/19 02/10/19 19:00 07:00 Intake Total 180 ml Balance 180 ml Intake Oral 180 ml # Voids 2 Laboratory Tests 02/09/19 23:00: Urine Color Pale yellow, Urine Appearance Clear, Urine pH 6, Urine Specific [place] 1.005, Urine Protein 2+H, Urine Glucose (UA) Negative, Urine Ketones Negative, Urine Blood 5+H, Urine Nitrite Negative, Urine Bilirubin Negative, Urine Urobilinogen Normal, Urine Leukocyte Esterase 1+H, Urine RBC 10-15H, Urine WBC 0-2, Urine Squamous Epithelial Cells ModerateH, Urine Bacteria Few, Urine Yeast FewH Height (Feet): 5 Height (Inches): 3.00 Weight (Pounds): 164 General Appearance: no apparent distress EENT: normal ENT inspection Neck: normal alignment, supple Cardiovascular: normal rate, regular rhythm Respiratory/Chest: lungs clear, normal breath sounds Abdomen: non tender, soft Edema: no edema noted Arm (L), no edema noted Arm (R), no edema noted Leg (L), no edema noted Leg (R), no edema noted Pedal (L), no edema noted Pedal (R), no edema noted Generalized Nasir Novoa MD Feb 10, 2019 09:41
--- NOTE | 2019-02-10 10:36 | NUR ---
NURSE NOTES: Pt has went down and returned from CT scan
--- NOTE | 2019-02-10 10:56 | Diagnostic Imaging Report ---
Indication: Headache Technique: Contiguous 5 mm thick transaxial imaging of the head obtained in a Siemens Sensation [address] scanner. Soft tissue and bone windows generated. Automatic Exposure Control was utilized. Total Dose length Product (DLP): 1362.[address] Dose Index Volume (CTDIvol): 70.38 mGy Comparison: none Findings: The size and configuration of the cortical sulci, basal cisterns, and ventricles are within normal limits for age. There is no mass effect, midline shift, or edema identified. There is no evidence of acute hemorrhage or abnormal intra-axial or extra-axial fluid collections. The bones and soft tissues are unremarkable. Impression: No mass effect, edema or acute bleed. The CT scanner at [facility] is accredited by the [employer] and the scans are performed using dose optimization techniques as appropriate to a performed exam including Automatic Exposure control.
[2019-02-10 10:58] LABS: BASOPHILS % (AUTO) 0.7 % (0.0-2.0); EOSINOPHILS % (AUTO) 1.4 % (0.0-3.0); HEMATOCRIT 39.5 % (37.0-47.0); HEMOGLOBIN 13.2 G/DL (12.0-16.0); MEAN CORPUSCULAR VOLUME 92 FL (80-99); MONOCYTES % (AUTO) 8.7 % (1.0-10.0); NEUTROPHILS % (AUTO) 71.3 % (45.0-75.0); PLATELET COUNT 261 K/UL (150-450); RED BLOOD COUNT 4.31 M/UL (4.20-5.40); RED CELL DISTRIBUTION WIDTH 11.7 % (11.6-14.8); WHITE BLOOD COUNT 9.5 K/UL (4.8-10.8)
[2019-02-10 11:09] LABS: ANION GAP 14 mmol/L (5-15); BLOOD UREA NITROGEN 17 mg/dL (7-18); CALCIUM 9.3 MG/DL (8.5-10.1); CARBON DIOXIDE 23 MMOL/L (21-32); CHLORIDE 103 MMOL/L (98-107); CREATININE 3.3 MG/DL (0.55-1.30); POTASSIUM 3.5 MMOL/L (3.5-5.1); SODIUM 140 MMOL/L (136-145)
[2019-02-10 12:00] VITALS: BP 122/73
--- NOTE | 2019-02-10 12:21 | NUR ---
CASE MANAGEMENT: REVIEW 02/10/2019 SI:CELLULITIS OF LEFT LEG T 99.4 HR 98 RR 18 B/P 134/94 SATS 100% ON RA CR 3.3 IS: LINEZOLID PO Q12H PEPCID PO QD MED/SURG STATUS DCP: PATIENT TO BE DISCHARGED TO HOME ONCE MEDICALLY CLEARED. PLAN OF CARE: CT HEAD (-)
--- NOTE | 2019-02-10 12:54 | NUR ---
NURSE NOTES: Pt informed specification writer that she wanted some sleep, pt informed that specification writer will return in one hour to check on her. Pt talking loudly on the phone. " I am praying right now, but if Im too loud for you close the door" She then pulled blanket over her head and continued talking on the phone
--- NOTE | 2019-02-10 13:07 | Infectious Diseases Prog Note ---
Assessment/Plan Assessment/Plan Assessment: LLE cellulitis -V. duplex: no DVT -Xray fibula/tibia: No acute injury. Afebrile No leukocytosis -u./a wbc 10-15, nit neg, leuk +3; ucx NTD -Bcx NTD Tobacco abuse Plan: -Patient refused IV abx; was switch to PO Zyvox #2 (abx d #3/10) -02/09 SP IV Vancomycin #2, Ancef #1 -02/08 SP Zosyn x1 -f/u cx -Monitor CBC/CMP, temperatures Thank you for this consultation. Will continue to follow along with you. Discussed with RN Subjective Allergies: Coded Allergies: No Known Allergies (Unverified , 01/07/17) Subjective afebrile leukocytosis resolved Bcx NTD Objective Vital Signs Last 24 Hour Vital Signs Date Time Temp Pulse Resp B/P (MAP) Pulse Ox O2 Delivery O2 Flow Rate FiO2 02/10/19 12:00 97.4 78 20 122/73 (89) 02/10/19 09:00 Room Air 02/10/19 08:00 98.3 81 18 108/62 (77) 02/10/19 04:00 97.9 17 104/71 (82) 98 02/10/19 00:00 99.1 85 18 131/82 (98) 98 02/09/19 21:00 Room Air 02/09/19 20:00 99.4 98 18 134/94 (107) 100 02/09/19 16:00 98.0 62 18 108/76 (87) 99 Height (Feet): 5 Height (Inches): 3.00 Weight (Pounds): 164 Objective General Appearance: no apparent distress, alert, non-toxic Head: normocephalic, atraumatic Eyes: bilateral eye normal inspection, bilateral eye PERRL ENT: hearing grossly normal, normal pharynx, no angioedema, normal voice Neck: full range of motion, supple/symm/no masses Respiratory: chest non-tender, lungs clear, normal breath sounds, no rhonchi, no wheezing, speaking full sentences Cardiovascular : normal inspection, regular rate, rhythm, no edema, no murmur, normal capillary refill Gastrointestinal: normal bowel sounds, non tender, soft, non-distended, no guarding, no rebound Genitourinary: no CVA tenderness Musculoskeletal: normal inspection, back normal, non-tender, no calf tenderness , swelling - Cellulitis of left lower extremity Skin: no rash Microbiology Date/Time Source Procedure Growth Status 02/08/19 15:10 Blood Blood Culture - Preliminary NO GROWTH AFTER 24 HOURS Resulted 02/08/19 14:55 Blood Blood Culture - Preliminary NO GROWTH AFTER 24 HOURS Resulted 02/08/19 22:20 Urine,Clean Catch Urine Culture - Preliminary NO GROWTH AFTER 24 HOURS Resulted Laboratory Tests Test 02/09/19 23:00 02/10/19 10:55 Urine Color Pale yellow Urine Appearance Clear Urine pH 6 (4.5-8.0) Urine Specific [place] 1.005 (1.005-1.035) Urine Protein 2+ (NEGATIVE) H Urine Glucose (UA) Negative (NEGATIVE) Urine Ketones Negative (NEGATIVE) Urine Blood 5+ (NEGATIVE) H Urine Nitrite Negative (NEGATIVE) Urine Bilirubin Negative (NEGATIVE) Urine Urobilinogen Normal MG/DL (0.0-1.0) Urine Leukocyte Esterase 1+ (NEGATIVE) H Urine RBC 10-15 /HPF (0 - 2) H Urine WBC 0-2 /HPF (0 - 2) Urine Squamous Epithelial Cells Moderate /LPF (NONE/OCC) H Urine Bacteria Few /HPF (NONE) Urine Yeast Few /HPF (NONE) H White Blood Count 9.5 K/UL (4.8-10.8) Red Blood Count 4.31 M/UL (4.20-5.40) Hemoglobin 13.2 G/DL (12.0-16.0) Hematocrit 39.5 % (37.0-47.0) Mean Corpuscular Volume 92 FL (80-99) Mean Corpuscular Hemoglobin 30.6 PG (27.0-31.0) Mean Corpuscular Hemoglobin Concent 33.4 G/DL (32.0-36.0) Red Cell Distribution Width 11.7 % (11.6-14.8) Platelet Count 261 K/UL (150-450) Mean Platelet Volume 6.4 FL (6.5-10.1) L Neutrophils (%) (Auto) 71.3 % (45.0-75.0) Lymphocytes (%) (Auto) 18.0 % (20.0-45.0) L Monocytes (%) (Auto) 8.7 % (1.0-10.0) Eosinophils (%) (Auto) 1.4 % (0.0-3.0) Basophils (%) (Auto) 0.7 % (0.0-2.0) Sodium Level 140 MMOL/L (136-145) Potassium Level 3.5 MMOL/L (3.5-5.1) Chloride Level 103 MMOL/L (98-107) Carbon Dioxide Level 23 MMOL/L (21-32) Anion Gap 14 mmol/L (5-15) Blood Urea Nitrogen 17 mg/dL (7-18) Creatinine 3.3 MG/DL (0.55-1.30) H Estimat Glomerular Filtration Rate 19.3 mL/min (>60) Glucose Level 101 MG/DL (74-106) Calcium Level 9.3 MG/DL (8.5-10.1) Current Medications Medications (Trade) Dose Ordered Sig/Stephenie Route PRN Reason Start Time Stop Time Status Last Admin Dose Admin Acetaminophen (Tylenol) 650 mg Q4H PRN ORAL Mild Pain (Pain Scale 1-3) 02/08/19 18:15 03/10/19 18:14 Bisacodyl (Dulcolax) 10 mg HSPRN PRN RECTAL Constipation 02/08/19 18:15 03/10/19 18:14 Dextrose (Dextrose 50%) 25 ml Q30M PRN IV Hypoglycemia 02/08/19 18:15 03/10/19 18:14 Dextrose (Dextrose 50%) 50 ml Q30M PRN IV Hypoglycemia 02/08/19 18:15 03/10/19 18:14 Diphenhydramine HCl (Benadryl) 25 mg Q8H PRN IVP Itching 02/08/19 20:15 03/10/19 20:14 Enoxaparin Sodium (Lovenox) 40 mg Q24H SUBQ 02/08/19 20:00 03/10/19 19:59 02/09/19 21:18 Famotidine (Pepcid) 40 mg DAILY ORAL 02/09/19 09:00 03/11/19 08:59 02/10/19 09:07 Linezolid (Zyvox) 600 mg EVERY 12 HOURS ORAL 02/09/19 21:00 02/14/19 20:59 02/10/19 09:07 Nicotine (Nicoderm) 1 patch Q24H TDERMAL 02/09/19 20:00 03/11/19 19:59 Ondansetron HCl (Zofran) 4 mg Q6H PRN IVP Nausea & Vomiting 02/08/19 18:15 03/10/19 18:14 Tramadol HCl (Ultram) 50 mg Q6H PRN ORAL pain>3 02/08/19 20:15 02/15/19 20:14 02/09/19 00:48 Catrina Ruiz M.D. Feb 10, 2019 13:07
[2019-02-10] MEDS ORDERED: Tubing IV Secondary IV ONE (14:25)
--- NOTE | 2019-02-10 15:30 | NUR ---
NURSE NOTES: Pt tray is at the bedside for lunch , requesting breakfast tray. " Someone took my tray , when I was sleep" " My cereal was on there and someone took my cereal" Pt informed about infection control , and informed that cereal can be replaced. kitchen phoned for cereal. Mother is at bedside came to the nurses station. " I can go buy milk it will be faster" Cereal and milk delivered" Pt refused the milk served, requested whole milk. Sheet Layer informed pt and mother that typewriter aligner will go down to kitchen to get whole milk and additional cereal." As typewriter aligner was leaving the kitchen , mother was in the cafeteria asking kitchen staff while they are on break for milk and cereal. " She will cuss at me" Sheet Layer had milk and cereal in possession. Sheet Layer took cereal and milk to room .
--- NOTE | 2019-02-10 16:54 | NUR ---
NURSE NOTES: Pt placed administration assistant light requesting mom push her around the block in the wheelchair. Risk explained. Roughly 5 minutes later pt was up in wheelchair, mother behind her pushing her, charge nurse asked pt to wait to review orders. Pt proceeded to get into elevator laughing. Bunch Breaker Machine Operator went down looking for pt , news writer seen her in lobby she hurriedly got onto elevator. Bunch Breaker Machine Operator walked to room pt began yelling " I know I was not suppose to go outside" Informed of order to be escorted by staff" " I don't want to smoke I just want to see and look around" Mother gait is unstable informed of risk and encouraged compliance. Pt difficult to redirect mood varies quickly
--- NOTE | 2019-02-10 18:56 | NUR ---
NURSE NOTES: Pt did not have any concerns no reports of vaginal bleeding. Breathing room air. Using bedside commode despite being able to maneuver well with walker and wheelchair. No blood in commode or tissue. Mother remains at bedside. Call light is in reach. Requested for blankets which were given Pt has a demanding personality lacks perception of time. All needs met
--- NOTE | 2019-02-10 18:59 | NUR ---
NURSE NOTES: Pt speaking clearly throughout shift no noted complications. Voice is variable from child like to deep and aggressive. Requires verbal redirection
--- NOTE | 2019-02-10 19:30 | NUR ---
NURSE NOTES: Patient awake in bed, alert and oriented x4, no complaints of pain at this time, able to verbalize needs to RN. Instructed the use of call light. Call light and needs in reach. Bed in lowest position and lock engaged. Will continue to monitor.
--- NOTE | 2019-02-10 19:58 | NUR ---
HAND-OFF: Report given to .Juan Francisco RAMOS
[2019-02-10 20:00] VITALS: BP 117/86
[2019-02-10] MEDS: Enoxaparin 40mg Inj SUBQ SCH (20:00)
--- NOTE | 2019-02-10 20:40 | NUR ---
NURSE NOTES: Patient was anxious, yelling to RN and refused to Nicotine patch and Lovenox.
[2019-02-11 04:00] VITALS: BP 130/71
--- NOTE | 2019-02-11 07:42 | NUR ---
HAND-OFF: Report given to RICHARD Kenney.
--- NOTE | 2019-02-11 07:56 | Nephrology Progress Note ---
Assessment/Plan Assessment/Plan: A/P 1) LLE Cellulitis Zyvoxx Defer to ID 2) Change in Speech?? question PSY ansd nurses noted normal speech patterns STAT CT Head neg Today patient no speeech problems and denies issues PSY consult placed 3) DVT prophylaxsis- lovenox 4) Polysubstance abuse 5) RASHAWN- Cr 1.2--3.3?? STAT repeat BMP Subjective Date patient seen: Feb 11, 2019 Time patient seen: 07:54 ROS Limited/Unobtainable: No Allergies: Coded Allergies: No Known Allergies (Unverified , 01/07/17) Subjective Patient today has no speech. PSY pending evaluation Objective Last 24 Hour Vital Signs Date Time Temp Pulse Resp B/P (MAP) Pulse Ox O2 Delivery O2 Flow Rate FiO2 02/11/19 04:00 98.4 70 18 130/71 (90) 96 02/10/19 21:00 Room Air 02/10/19 21:00 Room Air 02/10/19 20:00 99.1 63 18 117/86 (96) 100 02/10/19 12:00 97.4 78 20 122/73 (89) 02/10/19 09:00 Room Air 02/10/19 08:00 98.3 81 18 108/62 (77) Intake and Output 02/10/19 02/11/19 18:59 06:59 # Voids 1 3 Laboratory Tests 02/10/19 10:55: White Blood Count 9.5, Red Blood Count 4.31, Hemoglobin 13.2, Hematocrit 39.5, Mean Corpuscular Volume 92, Mean Corpuscular Hemoglobin 30.6, Mean Corpuscular Hemoglobin Concent 33.4, Red Cell Distribution Width 11.7, Platelet Count 261, Mean Platelet Volume 6.4L, Neutrophils (%) (Auto) 71.3, Lymphocytes (%) (Auto) 18.0L, Monocytes (%) (Auto) 8.7, Eosinophils (%) (Auto) 1.4, Basophils (%) (Auto ) 0.7, Sodium Level 140, Potassium Level 3.5, Chloride Level 103, Carbon Dioxide Level 23, Anion Gap 14, Blood Urea Nitrogen 17, Creatinine 3.3H, Estimat Glomerular Filtration Rate 19.3, Glucose Level 101, Calcium Level 9.3 Height (Feet): 5 Height (Inches): 3.00 Weight (Pounds): 164 General Appearance: no apparent distress, alert EENT: normal ENT inspection Neck: normal alignment, supple Cardiovascular: normal rate, regular rhythm Respiratory/Chest: lungs clear, normal breath sounds Abdomen: non tender, soft Edema: 2+ Leg (L) Nasir Novoa MD Feb 11, 2019 07:56
[2019-02-11 08:00] VITALS: BP 115/74
--- NOTE | 2019-02-11 08:20 | NUR ---
CASE MANAGEMENT: REVIEW 02/11/2019 SI:CELLULITIS OF LEFT LEG T 96.9 HR 70 RR 18 B/P 115/74 SATS 100% ON RA BMP: PENDING IS: LINEZOLID PO Q12H PEPCID PO QD MED/SURG STATUS DCP: PATIENT TO BE DISCHARGED TO HOME ONCE MEDICALLY CLEARED.
[2019-02-11 08:23] LABS: ANION GAP 12 mmol/L (5-15); BLOOD UREA NITROGEN 16 mg/dL (7-18); CALCIUM 9.9 MG/DL (8.5-10.1); CARBON DIOXIDE 22 MMOL/L (21-32); CHLORIDE 107 MMOL/L (98-107); CREATININE 3.1 MG/DL (0.55-1.30); SODIUM 141 MMOL/L (136-145)
[2019-02-11 11:53] VITALS: BP 116/74
--- NOTE | 2019-02-11 12:05 | NUR ---
NURSE NOTES: PLACED CALL TO DR. CRYSTAL TO ASK, PER PT REQUEST, WILL SHE SEE HER TODAY. DR. CRYSTAL WAS UNAWARE OF HAVING A CONSULT THAT WAS ORDERED THE DAY BEFORE. MD TO WILL TRY TO SEE PT. AFTER CLINIC TODAY PATIENT INFORMED.
[2019-02-11 16:00] VITALS: BP 119/72
--- NOTE | 2019-02-11 16:16 | Infectious Diseases Prog Note ---
Assessment/Plan Assessment/Plan Assessment: LLE cellulitis -V. duplex: no DVT -Xray fibula/tibia: No acute injury. Afebrile No leukocytosis -u./a wbc 10-15, nit neg, leuk +3; ucx NTD -Bcx NTD RASHAWN Tobacco abuse Plan: -Continue PO Zyvox #3 (abx d #4/10) -02/09 SP IV Vancomycin #2, Ancef #1 -02/08 SP Zosyn x1 -f/u cx -Monitor CBC/CMP, temperatures Thank you for this consultation. Will continue to follow along with you. Discussed with RN Subjective Allergies: Coded Allergies: No Known Allergies (Unverified , 01/07/17) Subjective afebrile no leukocytosis Bcx NTD Cr increased Objective Vital Signs Last 24 Hour Vital Signs Date Time Temp Pulse Resp B/P (MAP) Pulse Ox O2 Delivery O2 Flow Rate FiO2 02/11/19 11:53 98.1 83 18 116/74 (88) 100 02/11/19 09:00 Room Air 02/11/19 08:00 96.9 70 18 115/74 (88) 100 02/11/19 04:00 98.4 70 18 130/71 (90) 96 02/10/19 21:00 Room Air 02/10/19 21:00 Room Air 02/10/19 20:00 99.1 63 18 117/86 (96) 100 Height (Feet): 5 Height (Inches): 3.00 Weight (Pounds): 164 Objective General Appearance: no apparent distress, alert, non-toxic Head: normocephalic, atraumatic Eyes: bilateral eye normal inspection, bilateral eye PERRL ENT: hearing grossly normal, normal pharynx, no angioedema, normal voice Neck: full range of motion, supple/symm/no masses Respiratory: chest non-tender, lungs clear, normal breath sounds, no rhonchi, no wheezing, speaking full sentences Cardiovascular : normal inspection, regular rate, rhythm, no edema, no murmur, normal capillary refill Gastrointestinal: normal bowel sounds, non tender, soft, non-distended, no guarding, no rebound Genitourinary: no CVA tenderness Musculoskeletal: normal inspection, back normal, non-tender, no calf tenderness , swelling - Cellulitis of left lower extremity Skin: no rash Microbiology Date/Time Source Procedure Growth Status 02/09/19 23:00 Urine,Clean Catch Urine Culture - Preliminary NO GROWTH Resulted 02/08/19 22:20 Urine,Clean Catch Urine Culture - Final NO GROWTH AFTER 48 HOURS Complete Laboratory Tests Test 02/11/19 08:03 Sodium Level 141 MMOL/L (136-145) Potassium Level 4.0 MMOL/L (3.5-5.1) Chloride Level 107 MMOL/L (98-107) Carbon Dioxide Level 22 MMOL/L (21-32) Anion Gap 12 mmol/L (5-15) Blood Urea Nitrogen 16 mg/dL (7-18) Creatinine 3.1 MG/DL (0.55-1.30) H Estimat Glomerular Filtration Rate 20.7 mL/min (>60) Glucose Level 110 MG/DL (74-106) H Calcium Level 9.9 MG/DL (8.5-10.1) Current Medications Medications (Trade) Dose Ordered Sig/Stephenie Route PRN Reason Start Time Stop Time Status Last Admin Dose Admin Acetaminophen (Tylenol) 650 mg Q4H PRN ORAL Mild Pain (Pain Scale 1-3) 02/08/19 18:15 03/10/19 18:14 Bisacodyl (Dulcolax) 10 mg HSPRN PRN RECTAL Constipation 02/08/19 18:15 03/10/19 18:14 Dextrose (Dextrose 50%) 25 ml Q30M PRN IV Hypoglycemia 02/08/19 18:15 03/10/19 18:14 Dextrose (Dextrose 50%) 50 ml Q30M PRN IV Hypoglycemia 02/08/19 18:15 03/10/19 18:14 Diphenhydramine HCl (Benadryl) 25 mg Q8H PRN IVP Itching 02/08/19 20:15 03/10/19 20:14 Enoxaparin Sodium (Lovenox) 40 mg Q24H SUBQ 02/08/19 20:00 03/10/19 19:59 02/09/19 21:18 Famotidine (Pepcid) 40 mg DAILY ORAL 02/09/19 09:00 03/11/19 08:59 02/11/19 09:03 Linezolid (Zyvox) 600 mg EVERY 12 HOURS ORAL 02/09/19 21:00 02/14/19 20:59 02/11/19 09:03 Nicotine (Nicoderm) 1 patch Q24H TDERMAL 02/09/19 20:00 03/11/19 19:59 Ondansetron HCl (Zofran) 4 mg Q6H PRN IVP Nausea & Vomiting 02/08/19 18:15 03/10/19 18:14 Tramadol HCl (Ultram) 50 mg Q6H PRN ORAL pain>3 02/08/19 20:15 02/15/19 20:14 02/09/19 00:48 Catrina Ruiz M.D. Feb 11, 2019 16:16
--- NOTE | 2019-02-11 17:06 | NUR ---
NURSE NOTES: PATIENT SEEN BY DR. CRYSTAL AND DR. LOAIZA TODAY. PATIENT REMAINS CALM AND COOPERATIVE TODAY.
--- NOTE | 2019-02-11 17:07 | Consultation ---
Consult Note Consult Note GYNECOLOGY CONSULT NOTE CC: Abnormal bleeding HPI: Patient is a 34yo who was admitted with left leg cellulitis. Gynecology was consulted for abnormal bleeding. The patient reports that on Friday (when her leg pain started) she began noting some abnormal pink discharge. The discharge has become more red in quality, consistent with spotting. She denies any heavy bleeding currently. LMP 01/23/19, she has normal monthly menses, with normal volume. She denies any other abnormal discharge or abdominal pain. No constipation or diarrhea. No other issues. Of note, patient is somewhat of a poor historian. PMH: Denies PSH: Shoulder surgery (superficial per patient) Meds: Denies Allergies: NKDA OBHx: - x 3 (children ages 18, 14, 9), TAB x 4 (initially patient thought it might be TAB x 6 but stated "lets just make it 4") GYNHx: Last Pap 2-3y ago, no hx abnl. No hx cysts, fibroids, +hx of STI remotely as a teen SocHx: Lives with mother. Children live with their father. Endorses marijuana, tobacco, and alcohol use "socially". Has a boyfriend and is sexually active. FamHx: Mother and grandmother with breast cancer. Mother diagnosed in her 50s ( living), grandmother diagnosed at ?age ROS: Pertinent positives and negatives reviewed in HPI Vitals: Tlast 98.1, BP 116/74, P 83, RR 18, O2 100% RA Exam: Gen: NAD HEENT: OP clear, MMM Neck: No obvious thyromegaly CV: No tachycardia Pulm: No increased work of breathing Abd: Soft, NTND Pelvic: Bimanual exam revealed slightly enlarged uterus with normal shape/ contour. Mild pain with elevation of the uterus, but no true CMT. Small amount of blood and mucus on internal exam. No foul-smelling discharge Ext: Left lower extremity with findings consistent with cellulitis. Right lower extremity wnl, no calf TTP Labs: Test 02/11/19 08:03 Sodium Level 141 MMOL/L (136-145) Potassium Level 4.0 MMOL/L (3.5-5.1) Chloride Level 107 MMOL/L (98-107) Carbon Dioxide Level 22 MMOL/L (21-32) Anion Gap 12 mmol/L (5-15) Blood Urea Nitrogen 16 mg/dL (7-18) Creatinine 3.1 MG/DL (0.55-1.30) H Estimat Glomerular Filtration Rate 20.7 mL/min (>60) Glucose Level 110 MG/DL (74-106) H Calcium Level 9.9 MG/DL (8.5-10.1) Imaging: REQUESTED PELVIC US, WILL BE DONE LATER TONIGHT Assessment/Plan 34yo with irregular bleeding - No prior known hx of fibroids or cysts and urine hCG neg - LMP 01/23, thus this is irregular/intermenstrual bleeding for her - Etiology of bleeding unclear, recommend pelvic US to rule out endometrial pathology - Given clinical picture, consider possible cervicitis - recommend treatment for STI empirically given unable to collect s/p antibiotic administration - Will order CTX 250mg IM and Azithromycin 1g x 1 to be given during this admission - Follow up pelvic US results - If US appears normal, patient can be cleared for discharge from 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 Signed: MD Catalina Solis Carla M.D. Feb 11, 2019 17:07
[2019-02-11] MEDS ORDERED: Azithromycin 250mg tab ORAL SCH (17:26)
[2019-02-11] MEDS ORDERED: Lidocaine 1% MPF 10mg/ml 5ml INJ SCH (18:00)
--- NOTE | 2019-02-11 19:27 | NUR ---
Nurses notes report received from Anne Marie RAMOS. Pt alert oriented and able to make needs known no acute distress noted. Pt on room air. no IV access per nurse MD aware. Pt use bedside commode to void. walker at bedside. Pt lying comfortable in bed no complaints at this time. bed in lowest position side rails up call light in reach. Pt instructed to call for assistance.
--- NOTE | 2019-02-11 19:37 | NUR ---
HAND-OFF: Report given to FELISHA KHOURY RN.
[2019-02-11 20:00] VITALS: BP 115/74
[2019-02-11] MEDS: Enoxaparin 40mg Inj SUBQ SCH (20:00)
--- NOTE | 2019-02-11 20:09 | Diagnostic Imaging Report ---
Indication:Lower abdominal and pelvic pain Technique: Grayscale and duplex Doppler imaging of the pelvis performed utilizing a transabdominal and endovaginal scan. Comparison: None Findings: The size, contour, and configuration of the uterus is within normal limits. The endometrium is uniformly echogenic and normal in thickness measuring about 11 mm. There is fluid noted within the endocervical canal which could be normal if the patient is currently menstruating. This requires clinical correlation. The ovaries appear normal bilaterally with good dopplerable blood flow. There is a small amount of free fluid identified. In the right ovary there is a complex cystic mass present measuring about 2 cm. Suggestion of internal septations noted. Suggest follow-up examination in 6 weeks at another phase of the menstrual cycle. The right ovary is 4.4 x 2.1 x 2 cm. Left ovary 3.2 x 1.4 x 1.5 cm. IMPRESSION: 2 cm complex right ovarian mass. Recommend follow-up in 6 weeks during another phase of the menstrual cycle. Trace fluid or blood within the cervical canal. Correlate clinically.
[2019-02-12] MEDS ORDERED: LORazepam 1mg tab ORAL PRN
[2019-02-12 04:00] VITALS: BP 102/62
--- NOTE | 2019-02-12 04:45 | Consultation ---
DATE OF CONSULTATION: 02/11/2019 CONSULTING PHYSICIAN: Kathy Latham M.D. HISTORY OF PRESENT ILLNESS: The patient is a 34-year-old female with unknown psychiatric history. The patient is admitted to the hospital for lower extremity pain with swelling. The patient is also complaining of vaginal bleeding. The patient has little difficult on the unit . The patient has been saying that the staff has been treating her and history of very depressed, anxious, worried about. PAST PSYCHIATRY HISTORY: She denied any psychiatric history. PAST MEDICAL HISTORY: Nonsignificant. ALLERGIES: No known drug allergies. SUBSTANCE ABUSE HISTORY: She denied any history of illicit drug use or alcohol, however, his system was positive for opioids, meth, as well as and marijuana. The patient was very defensive substance use disorder. MENTAL STATUS EXAMINATION: Alert and oriented x3. Cooperative with the examination. Mood seems anxious. Affect is constricted, congruent with mood. Thought process is concrete. Thought content, no suicidal or homicidal ideation. Cognition is intact. Insight and judgment is fair. ASSESSMENT: [place] I Polysubstance dependence versus abuse. [place] II deferred [place] III [place] IV Low to moderate. [place] V 20. PLAN: The patient was adamant being on psychotropic medication. She stated that she does not have "mental issues." The patient will be started on Ativan as needed. Discussed the case with the charge nurse and staff. The patient requested to see . Kathy Latham M.D. DR: MAURICIO JOB#: [id number] CC: GABRIELA
--- NOTE | 2019-02-12 05:05 | NUR ---
NURSE NOTE: Report received from RICHARD Liao at approx 0015. Pt is A/O4. Speech is normal and VS are stable. Orders reviewed. Pt's left foot has pitting edema and is elevated on a pillow. The lateral anterior aspect of the left foot has some scabbing, otherwise the pt's skin is intact. Pt does not endorse any complaints and denies having any pain. Call ocampo is within reach and bed is low and locked. Will continue to monitor.
--- NOTE | 2019-02-12 07:00 | NUR ---
NURSE NOTES: Nurse report given by RICHARD Whelan. Patient's awake in bed, supine position. No s/s of distress or SOB. No IV site access, patient refused, Dr Novoa is aware. Denies pain. Bed at lowest position, break engage and call light within reach. Will continue to monitor.
--- NOTE | 2019-02-12 07:18 | NUR ---
HAND-OFF: Report given to Le. Pt is stable.
--- NOTE | 2019-02-12 08:09 | Nephrology Progress Note ---
Assessment/Plan Assessment/Plan: A/P 1) LLE Cellulitis Zyvoxx DC if cleared by ID 2) Change in Speech- resolved and patient denies havinf any issues STAT CT Head neg Today patient no speeech problems and denies issues PSY cslt appreciated 3) DVT prophylaxsis- lovenox 4) Polysubstance abuse 5) RASHAWN- Cr 1.2--3.3---3.1 Component of volume depletion. Patient declining IVFs and BMP 6) Vaginal Bleeding- OBGYN to clear prior to DC Subjective Date patient seen: Feb 12, 2019 Time patient seen: 07:59 ROS Limited/Unobtainable: No Allergies: Coded Allergies: No Known Allergies (Unverified , 01/07/17) Subjective Patient demanding to leave at 2 pm Objective Last 24 Hour Vital Signs Date Time Temp Pulse Resp B/P (MAP) Pulse Ox O2 Delivery O2 Flow Rate FiO2 02/12/19 04:00 98.7 87 18 102/62 (75) 99 02/11/19 21:00 Room Air 02/11/19 20:00 96.9 70 18 115/74 (88) 100 02/11/19 16:00 98.6 62 18 119/72 (88) 100 02/11/19 11:53 98.1 83 18 116/74 (88) 100 02/11/19 09:00 Room Air 02/11/19 08:00 96.9 70 18 115/74 (88) 100 Intake and Output 02/11/19 02/12/19 18:59 06:59 Intake Total 600 ml 120 ml Balance 600 ml 120 ml Intake Oral 600 ml 120 ml # Voids 6 3 # Bowel Movements 2 2 Laboratory Tests 02/11/19 08:03: Sodium Level 141, Potassium Level 4.0, Chloride Level 107, Carbon Dioxide Level 22, Anion Gap 12, Blood Urea Nitrogen 16, Creatinine 3.1H, Estimat Glomerular Filtration Rate 20.7, Glucose Level 110H, Calcium Level 9.9 Height (Feet): 5 Height (Inches): 3.00 Weight (Pounds): 164 General Appearance: no apparent distress, alert Neck: normal alignment, supple Cardiovascular: normal rate, regular rhythm Respiratory/Chest: lungs clear Abdomen: non tender, soft Edema: no edema noted Arm (L), no edema noted Arm (R), no edema noted Leg (L), no edema noted Leg (R), no edema noted Pedal (L), no edema noted Pedal (R), no edema noted Generalized Nasir Novoa MD Feb 12, 2019 08:09
[2019-02-12 08:35] LABS: ANION GAP 10 mmol/L (5-15); BLOOD UREA NITROGEN 13 mg/dL (7-18); CALCIUM 9.5 MG/DL (8.5-10.1); CARBON DIOXIDE 24 MMOL/L (21-32); CHLORIDE 106 MMOL/L (98-107); CREATININE 2.8 MG/DL (0.55-1.30); POTASSIUM 3.9 MMOL/L (3.5-5.1); SODIUM 140 MMOL/L (136-145)
--- NOTE | 2019-02-12 10:09 | NUR ---
NURSE NOTES: Left message for Dr. Kwasi Sauceda regarding patient's prescription. Awaiting for response.
--- NOTE | 2019-02-12 10:25 | NUR ---
NURSE NOTES: Left message with Dr. Ruiz regarding about the patient's prescription. Waiting for response.
--- NOTE | 2019-02-12 11:09 | NUR ---
NURSE NOTES: Dr Ruiz cleared patient to be discharged with new prescription that patient prefer to fruit or nut picker at [facility]. Dr. Ruiz aware and put in the order with the pharmacy. Patient will go home with Zyvoxx 600mg PO for 6 days.
--- NOTE | 2019-02-12 11:18 | NUR ---
NURSE NOTES: Contacted with Dr. Novoa regarding about patient's discharge. Dr. Novoa cleared her for discharge with OBGYN, ID and PT clearance. Dr Arnold and Dr. Ruiz cleared the patient and ok to be discharged. PT to recc crutches and d/c with zyvoxx. Order acknowledged and carried out.
[2019-02-12] MEDS ORDERED: ZYVOX600 MG ORAL ×2 (12:00→12:01)
--- NOTE | 2019-02-12 12:30 | NUR ---
NURSE NOTES: Patient refused to be evaluated by PT. She stated: " I don't need to be cleared by PT. I just need the crutches." Nurse provided her with crutches and gave instruction on how to use crutches. Patient understood and demonstrated how to use correctly.
--- NOTE | 2019-02-12 12:40 | NUR ---
NURSE NOTES: Contacted [facility] and spoke with Latonia regarding about patient's new prescription. Faxed to the pharmacy the facesheet. Awaiting for prescription to bring to the patient before getting discharged.
--- NOTE | 2019-02-12 13:00 | NUR ---
NURSE NOTES: Spoke to Brayden pharmacist from [facility] regarding to patient's prescription and Brayden mentioned that patient owes 35 dollars to pay in order to get the medication. Patient stated: " I don't have any money to pay right now. I have to go home and get the money and go back the pharmacy to pay for the prescription." Patient is aware and nurse spoke to Brayden about the situation. He is aware and notified the patient the pharmacy will be open until 1800.
--- NOTE | 2019-02-12 14:00 | NUR ---
NURSE NOTES: Patient's cleared to be discharged per Dr. Novoa's order. Patient's discharged with crutches. AO x 4, denies pain. IV is removed by patient on previous shift, MD is aware, ID band is removed. Patient's going home by taxi voucher by herself. Patient's off the floor at 1400. Charge nurse is aware.
--- NOTE | 2019-02-12 14:11 | Diagnostic Imaging Report ---
Indication:Elevated Bun and Creatinine. Technique: Grayscale and duplex Doppler imaging of the kidneys performed. Comparison: None Findings: The size, contour, and echogenicity of both kidneys are within normal limits. There is no hydronephrosis.. The right kidney measures 13.4 cm. in length. The left kidney measures 12.1 cm. in length. There is a small cyst in the left kidney measuring 1.2 cm. The IVC is patent. Urinary bladder is unremarkable. IMPRESSION: Negative ultrasound the kidneys. Left renal cyst
--- NOTE | 2019-02-12 14:30 | Infectious Diseases Prog Note ---
Assessment/Plan Assessment/Plan Assessment: LLE cellulitis -V. duplex: no DVT -Xray fibula/tibia: No acute injury. Afebrile No leukocytosis -u./a wbc 10-15, nit neg, leuk +3; ucx NTD -Bcx NTD RASHAWN; improving Tobacco abuse Plan: -Continue PO Zyvox #4 (abx d #5/10) -02/09 SP IV Vancomycin #2, Ancef #1 -02/08 SP Zosyn x1 -f/u cx -Monitor CBC/CMP, temperatures Thank you for this consultation. Will continue to follow along with you. Discussed with RN Subjective Allergies: Coded Allergies: No Known Allergies (Unverified , 01/07/17) Subjective afebrile no leukocytosis Bcx NTD Cr improving Objective Vital Signs Last 24 Hour Vital Signs Date Time Temp Pulse Resp B/P (MAP) Pulse Ox O2 Delivery O2 Flow Rate FiO2 02/12/19 09:00 Room Air 02/12/19 04:00 98.7 87 18 102/62 (75) 99 02/11/19 21:00 Room Air 02/11/19 20:00 96.9 70 18 115/74 (88) 100 02/11/19 16:00 98.6 62 18 119/72 (88) 100 Height (Feet): 5 Height (Inches): 3.00 Weight (Pounds): 164 Objective General Appearance: no apparent distress, alert, non-toxic Head: normocephalic, atraumatic Eyes: bilateral eye normal inspection, bilateral eye PERRL ENT: hearing grossly normal, normal pharynx, no angioedema, normal voice Neck: full range of motion, supple/symm/no masses Respiratory: chest non-tender, lungs clear, normal breath sounds, no rhonchi, no wheezing, speaking full sentences Cardiovascular : normal inspection, regular rate, rhythm, no edema, no murmur, normal capillary refill Gastrointestinal: normal bowel sounds, non tender, soft, non-distended, no guarding, no rebound Genitourinary: no CVA tenderness Musculoskeletal: normal inspection, back normal, non-tender, no calf tenderness , swelling - Cellulitis of left lower extremity Skin: no rash Microbiology Date/Time Source Procedure Growth Status 02/09/19 23:00 Urine,Clean Catch Urine Culture - Preliminary NO GROWTH AFTER 24 HOURS Resulted Laboratory Tests Test 02/12/19 08:10 Sodium Level 140 MMOL/L (136-145) Potassium Level 3.9 MMOL/L (3.5-5.1) Chloride Level 106 MMOL/L (98-107) Carbon Dioxide Level 24 MMOL/L (21-32) Anion Gap 10 mmol/L (5-15) Blood Urea Nitrogen 13 mg/dL (7-18) Creatinine 2.8 MG/DL (0.55-1.30) H Estimat Glomerular Filtration Rate 23.3 mL/min (>60) Glucose Level 93 MG/DL (74-106) Calcium Level 9.5 MG/DL (8.5-10.1) Current Medications Medications (Trade) Dose Ordered Sig/Stephenie Route PRN Reason Start Time Stop Time Status Last Admin Dose Admin Acetaminophen (Tylenol) 650 mg Q4H PRN ORAL Mild Pain (Pain Scale 1-3) 02/08/19 18:15 03/10/19 18:14 Bisacodyl (Dulcolax) 10 mg HSPRN PRN RECTAL Constipation 02/08/19 18:15 03/10/19 18:14 Dextrose (Dextrose 50%) 25 ml Q30M PRN IV Hypoglycemia 02/08/19 18:15 03/10/19 18:14 Dextrose (Dextrose 50%) 50 ml Q30M PRN IV Hypoglycemia 02/08/19 18:15 03/10/19 18:14 Diphenhydramine HCl (Benadryl) 25 mg Q8H PRN IVP Itching 02/08/19 20:15 03/10/19 20:14 Enoxaparin Sodium (Lovenox) 40 mg Q24H SUBQ 02/08/19 20:00 03/10/19 19:59 02/09/19 21:18 Famotidine (Pepcid) 40 mg DAILY ORAL 02/09/19 09:00 03/11/19 08:59 02/12/19 09:23 Linezolid (Zyvox) 600 mg EVERY 12 HOURS ORAL 02/09/19 21:00 02/14/19 20:59 02/12/19 09:23 Lorazepam (Ativan) 1 mg Q6H PRN ORAL For Anxiety 02/12/19 00:00 02/19/19 00:00 Nicotine (Nicoderm) 1 patch Q24H TDERMAL 02/09/19 20:00 03/11/19 19:59 Ondansetron HCl (Zofran) 4 mg Q6H PRN IVP Nausea & Vomiting 02/08/19 18:15 03/10/19 18:14 Tramadol HCl (Ultram) 50 mg Q6H PRN ORAL pain>3 02/08/19 20:15 02/15/19 20:14 02/09/19 00:48 Catrina Ruiz M.D. Feb 12, 2019 14:30
--- NOTE | 2019-02-13 00:15 | Progress Note ---
DATE: 02/12/2019 SUBJECTIVE: The patient is in bed. Has multiple complaints. supervisor painting department spoke to her last night. The patient is still concerned about her current issues. MENTAL STATUS EXAMINATION: Oriented x4. Mood is neutral. Affect is constricted, congruent with mood. Thought process is linear. Thought content, no suicidal or homicidal ideation. ASSESSMENT: Anxiety disorder, abuse. PLAN: 1. The patient is reluctant to take any medication. 2. Provide the patient with reality orientation and supportive therapy. Kathy Latham M.D. DR: JEFE JOB#: [id number] CC: GABRIELA
--- NOTE | 2019-02-14 23:27 | Discharge Summary ---
Discharge Summary Discharge Summary _ DATE OF ADMISSION: 02/08/2019 DATE OF DISCHARGE: 02/12/2019 DISCHARGED BY: Dr. Nasir Novoa CONSULTANTS: Dr. Kathy johnson BRIEF HOSPITAL COURSE: Patient is a 34-year-old female, with no past medical history, presented to the emergency room complaining of left lower extremity pain, redness and swelling. Symptoms started over the past week. Patient reported she was usually mobile. She walks barefoot. She denied any chest pain, nausea, vomiting, diarrhea or shortness of breath. On evaluation at the ED, vital signs were stable. There was cellulitis noted in the left lower extremity. Blood work showed WBC 11.2. Hemoglobin and hematocrit were stable. Potassium was 3.3. Chloride 97. Urine toxicology screen was positive for opiates, amphetamine and marijuana. X-ray of the left tibia fibula did not show any acute injury. Venous duplex of the left leg was negative for acute DVT. She was admitted for left lower extremity cellulitis. She was started empirically on IV vancomycin. She was given Lovenox for DVT prophylaxis. She was given famotidine for GI prophylaxis. ID was consulted. She was ordered IV vancomycin and Ancef for better strep coverage. Patient refused IV antibiotics. Antibiotic was then switched to p.o. Zyvox. There was a sudden change in speech noted by the nurses. Stat head CT was negative. Commercial Credit Reviewer was consulted. Patient complained of abnormal bleeding. Patient had discharge and became more red in quality, consistent with spotting. She denied any heavy bleeding. She has normal monthly menses with normal volume. Urine hCG negative. She was given treatment for possible cervicitis. She was given ceftriaxone 250 mg IM and azithromycin 1 g. Pelvic ultrasound showed a 2 cm complex right ovarian mass. Recommend follow-up in 6 weeks. Psychiatric evaluation was done. She was diagnosed with polysubstance dependence versus abuse. The patient was adamant on being on psychotropic medication. She was reluctant on taking any medication. She was provided reality orientation and supportive therapy. Kidney function worse. Patient was refusing IV fluids and BMP. Kidney ultrasound was unremarkable. Patient was eventually discharged home. FINAL DIAGNOSES: Left lower extremity cellulitis Acute kidney injury Anxiety disorder Polysubstance abuse Tobacco abuse Sudden change in speech, resolved, referred to psych Vaginal bleeding DISPOSITION: Patient was discharged home. DISCHARGE MEDICATIONS: Refer to Discharge Medication List. DISCHARGE INSTRUCTIONS: Follow-up in a week. I have been assigned to complete a discharge summary on this account, I was not involved with the patient's management.--MALCOLM Mike Jacqueline Robles NP Feb 14, 2019 23:26
== END 2019-02-12 14:43 | disposition home or self-care (01) | DRG 383 ==
LOC: EMR 14:53 → 3E 15:55 → EDBEDREQ 16:05 → 3E 02-09 16:28
DX: L03.116 Cellulitis of left lower limb (principal); F15.10 Other stimulant abuse, uncomplicated; E87.6 Hypokalemia; N17.9 Acute kidney failure, unspecified; F41.9 Anxiety disorder, unspecified; F10.10 Alcohol abuse, uncomplicated; F17.200 Nicotine dependence, unspecified, uncomplicated; N93.9 Abnormal uterine and vaginal bleeding, unspecified; F11.10 Opioid abuse, uncomplicated
CPT/HCPCS: 36415; 70450; 76770; 76830; 76856; 80048; 80053; 80307; 81001; 81025; 83605; 85007; 85025; 85610; 85651; 85730; 86140; 86850; 86900; 86901; 87040; 87086; 93971; 96365; 96366; 96375; 99285; J8499

== ENCOUNTER 2019-07-24 11:15 | Emergency (ER) | payer MEDICAID ==
[~2019-07-24] VITALS: Ht 160 cm; Wt 63.5 kg
[~2019-07-24 11:15] MED LIST changes: +ZYVOX600 MG ORAL
--- NOTE | 2019-07-24 11:42 | NUR ---
ED Nurse Note: Pt walked into ED w/ c/o toothache L side, with L jaw pain radiating to forehead. Pt states she's had pain for 1 day and pain is 10/10. Pt states she hasn't been to dentist in past year. L side teeth are black. Pt is alert and orientedx4, ambulatory.
[2019-07-24 11:44] VITALS: BP 124/75
[2019-07-24] MEDS ORDERED: NORCO 5-325 TA1 EACH ORAL (11:50)
[2019-07-24] MEDS ORDERED: IBUPROFEN600 MG ORAL ×2 (11:50)
[2019-07-24] MEDS ORDERED: AUGMENTIN 875-1 EAC1 ORAL ×2 (11:50)
[2019-07-24] MEDS ORDERED: Augmentin 875mg Tab ORAL ONE (12:00)
[2019-07-24 12:10] VITALS: BP 120/71
--- NOTE | 2019-07-24 12:10 | NUR ---
ER DISCHARGE NOTE: Patient is cleared to be discharged per ERMD, pt is aox4, on room air, with stable vital signs. pt was given dc and prescription instructions, pt was able to verbalize understanding, pt id band removed. pt is able to ambulate with steady gait. pt took all belongings.
--- NOTE | 2019-07-24 14:02 | Emergency Room Report ---
History of Present Illness General Chief Complaint: Toothache Source: Patient Present Illness HPI Patient presents with complaints of left upper dental pain Ongoing for the past several days patient reports she had some symptoms up to 2 weeks ago Patient reports that she has dental problems however has not been able to see a dentist Denies any trismus denies any fevers or chills Pain is 7 out of 10 worse with touch or biting Allergies: Coded Allergies: No Known Allergies (Unverified , 01/07/17) Patient History Past Medical History: see triage record Last Menstrual Period: Jun, 2019 Now: No Reviewed Nursing Documentation: PMH: Agreed; PSxH: Agreed Nursing Documentation-PMH Past Medical History: No Stated History Hx Cardiac Problems: No Hx Cancer: No Hx Gastrointestinal Problems: No Hx Neurological Problems: No Review of Systems All Other Systems: negative except mentioned in HPI Physical Exam Vital Signs Date Time Temp Pulse Resp B/P (MAP) Pulse Ox O2 Delivery O2 Flow Rate FiO2 07/24/19 11:22 98.2 86 19 130/77 (94) 98 Room Air Sp02 EP Interpretation: reviewed, normal General Appearance: well appearing, no apparent distress Head: normocephalic, atraumatic Eyes: bilateral eye PERRL, bilateral eye EOMI ENT: other - Left upper more lower region evidence of dental decay some irritation to the gingival area as well Neck: supple, thyroid normal Respiratory: lungs clear, no respiratory distress, no retraction Cardiovascular #1: regular rate, rhythm Gastrointestinal: non tender, soft Musculoskeletal: normal inspection Neurologic: alert, oriented x3 Skin: no rash Lymphatic: normal inspection Medical Decision Making Diagnostic Impression: Primary Impression: Toothache Additional Impression: dental infection ER Course Given the history and findings consideration for dental abscess and facial cellulitis is made however Clinical exam is not consistent with this patient placed on oral antibiotics and pain medication and requires close outpatient dental follow-up Last Vital Signs Date Time Temp Pulse Resp B/P (MAP) Pulse Ox O2 Delivery O2 Flow Rate FiO2 07/24/19 12:10 98.5 76 16 120/71 99 Room Air Status: improved Disposition: HOME, SELF-CARE Condition: Improved Scripts Amoxicillin/Potassium Clav 875-125* (AUGMENTIN 875-125 TABLET*) 1 Each Tablet 1 TAB ORAL TWICE A DAY, #14 TAB Prov: Arlen Polk DO 07/24/19 Hydrocodone Bit/Acetaminophen 5-325* (NORCO 5-325*) 1 Each Tablet 1 TAB ORAL Q12HR PRN for For Pain, #10 TAB 0 Refills Prov: Arlen Polk DO 07/24/19 Ibuprofen* (MOTRIN*) 600 Mg Tablet 600 MG ORAL Q8H PRN for For Pain, #20 TAB 0 Refills Prov: Arlen Polk DO 07/24/19 Referrals: [facility] [place] Patient Instructions: Dental Pain Additional Instructions: Patient is provided with the discharge instructions notified to follow up with primary doctor in the next 2-3 days otherwise return to the er with any worsening symptoms. Please note that this report is being documented using [employer] technology. This can lead to erroneous entry secondary to incorrect interpretation by the dictating instrument. Arlen Polk DO Jul 24, 2019 14:02
== END 2019-07-24 12:10 | disposition home or self-care (01) ==
LOC: EMR 11:28
DX: K08.89 Other specified disorders of teeth and supporting structures (principal); K04.7 Periapical abscess without sinus
CPT/HCPCS: 99282

== ENCOUNTER 2019-08-09 03:27 | Emergency (ER) | payer MEDICAID ==
[~2019-08-09] VITALS: Ht 160 cm; Wt 68.0 kg
[~2019-08-09 03:27] MED LIST changes: +AUGMENTIN 875-1 EAC1 ORAL; +NORCO 5-325 TA1 EACH ORAL
--- NOTE | 2019-08-09 03:40 | NUR ---
ED Nurse Note: Recieved pt from home, here with c/o headache x 1 month, pt states has migraine headache that no meds will work for, pt seen here last week for toothache and given norco and states was not effective either, pt is ambulatory, no visual disturbances or nausea or dizziness, denies photophobia or any other complaints.
--- NOTE | 2019-08-09 03:51 | Emergency Room Report ---
History of Present Illness General Chief Complaint: Headache Source: Patient, Medical Record Present Illness HPI This a 34-year-old female with no past medical history. She presents with complaint of headache. She said this headache been ongoing for a few months. She never saw anybody for it. She was here 2 weeks ago because she had dental pain. She thought it was related to that. She was prescribed pain medication antibiotics which she took everything and the dental pain got better but the headache persists. It was intermittently before but now is been persistent. Pain is localized to the right side. Throbbing in nature. No radiation. No nausea no vomiting or diarrhea. No fever chills. Nothing made it better. Nothing made it worse. Denies any focal deficit. Allergies: Coded Allergies: No Known Allergies (Unverified , 01/07/17) Patient History Past Medical History: see triage record, old chart reviewed Past Surgical History: none Pertinent Family History: none Social History: Denies: smoking Last Menstrual Period: 07/22/19 Now: No Immunizations: other Reviewed Nursing Documentation: PMH: Agreed; PSxH: Agreed Nursing Documentation-PMH Hx Cardiac Problems: No Hx Cancer: No Hx Gastrointestinal Problems: No Hx Neurological Problems: No Review of Systems Eye: Denies: eye pain, blurred vision ENT: Denies: ear pain, nose congestion, throat swelling Respiratory: Denies: cough, shortness of breath Cardiovascular: Denies: chest pain, palpitations Gastrointestinal: Denies: abdominal pain, diarrhea, nausea, vomiting Musculoskeletal: Denies: back pain, joint pain Skin: Denies: rash Neurological: Reports: headache; Denies: numbness Endocrine: Denies: increased thirst, increased urine Hematologic/Lymphatic: Denies: easy bruising All Other Systems: negative except mentioned in HPI Physical Exam Vital Signs Date Time Temp Pulse Resp B/P (MAP) Pulse Ox O2 Delivery O2 Flow Rate FiO2 08/09/19 03:28 98.2 91 18 118/82 (94) 100 Room Air Vitals normal Sp02 EP Interpretation: reviewed, normal General Appearance: well appearing, no apparent distress, alert Head: normocephalic, atraumatic Eyes: bilateral eye PERRL, bilateral eye EOMI ENT: hearing grossly normal, normal pharynx Neck: full range of motion, supple, no meningismus Respiratory: chest non-tender, lungs clear, normal breath sounds Cardiovascular #1: regular rate, rhythm, no murmur Gastrointestinal: normal bowel sounds, non tender, no mass, no organomegaly, no bruit, non-distended Musculoskeletal: back normal, normal range of motion, gait/station normal Psychiatric: mood/affect normal Medical Decision Making Diagnostic Impression: Primary Impression: Headache Qualified Codes: R51 - Headache ER Course Patient presents with headache. This been chronic for couple months at least. No evidence of meningitis, sepsis, bleed or neoplastic process. CT scan negative. Will discharge home. CT/MRI/US Diagnostic Results CT/MRI/US Diagnostic Results : Imaging Test Ordered: CT head Impression Negative per radiologist Last Vital Signs Date Time Temp Pulse Resp B/P (MAP) Pulse Ox O2 Delivery O2 Flow Rate FiO2 08/09/19 03:28 98.2 91 18 118/82 (94) 100 Room Air Status: improved Disposition: HOME, SELF-CARE Condition: Stable Scripts Ibuprofen* (MOTRIN*) 600 Mg Tablet 600 MG ORAL THREE TIMES A DAY, #30 TAB 0 Refills Prov: Eliot Pimentel MD 08/09/19 Amitriptyline HCl (ELAVIL*) 75 Mg Tablet 75 MG ORAL BEDTIME, #30 TAB Prov: Eliot Pimentel MD 08/09/19 Patient Instructions: General Headache Without Cause Additional Instructions: Follow-up with your doctor in 7 days. You may need referral to see a neurologist for your headache. Return if symptoms worsen. Eliot Pimentel MD Aug 09, 2019 03:51
[2019-08-09] MEDS ORDERED: HYDROcodone/Acetamin 5/325 tab ORAL ONE (04:00)
--- NOTE | 2019-08-09 04:45 | NUR ---
ED Nurse Note: Pt states meds nto effective, aware, pt re-medicated and being prepared for disposition, pt ct-scan negative, no changes noted.
[2019-08-09] MEDS ORDERED: AMITRIPTYLINE75 MG ORAL (05:02)
[2019-08-09] MEDS ORDERED: IBUPROFEN600 MG ORAL (05:02)
--- NOTE | 2019-08-09 05:03 | Diagnostic Imaging Report ---
Indications: Headache for 2 days Technique: Spiral acquisitions obtained through the brain. Angled axial and coronal 5 x 5 mm slices were reconstructed. Total dose length product 1205 mGycm. CTDI vol(s) 53 mGy. Dose reduction achieved using automated exposure control Comparison: 02/10/2019 Findings: No acute intracranial hemorrhage or edema. No mass effect nor midline shift. Normal size ventricles and extra-axial CSF spaces. Normal lane-white differentiation. Visualized orbits are unremarkable. There is minimal left maxillary sinus mucosal thickening. Mastoids are clear. The calvarium is intact. No significant interim change Impression: Negative Incidental finding of minimal sinus disease This agrees with the preliminary interpretation provided overnight by [facility] teleradiology service. The CT scanner at [facility] is accredited by the [employer] and the scans are performed using protocols designed to limit radiation exposure to as low as reasonably achievable to attain images of sufficient resolution adequate for diagnostic evaluation.
[2019-08-09 05:22] VITALS: BP 122/76
[2019-08-09 05:30] VITALS: BP 122/76
--- NOTE | 2019-08-09 05:30 | NUR ---
ER DISCHARGE NOTE: Patient is cleared to be discharged per ERMD, pt is aox4, on room air, with stable vital signs. pt was given dc and prescription instructions, pt was able to verbalize understanding, pt id band removed without complications. pt is able to ambulate with steady gait. pt took all belongings.
== END 2019-08-09 05:31 | disposition home or self-care (01) ==
LOC: EMR 03:56
DX: R51 Headache (principal)
CPT/HCPCS: 70450; Z7502; 99284

== ENCOUNTER 2020-03-09 04:48 | Emergency (ER) | payer MEDICAID ==
[~2020-03-09] VITALS: Ht 160 cm; Wt 72.6 kg
[~2020-03-09 04:48] MED LIST changes: +AMITRIPTYLINE75 MG ORAL
[2020-03-09 05:00] VITALS: BP 115/68
[2020-03-09] MEDS ORDERED: AUGMENTIN 875-1 EAC1 ORAL (05:08)
[2020-03-09] MEDS ORDERED: ACETAMINOPHEN500 MG ORAL (05:08)
[2020-03-09] MEDS ORDERED: Augmentin 875mg Tab ORAL ONE (05:15)
[2020-03-09] MEDS ORDERED: Acetaminophen 500mg (ES) tab ORAL ONE (05:15)
[2020-03-09] MEDS ORDERED: IBUPROFEN600 M1 ORAL (05:18)
--- NOTE | 2020-03-09 05:19 | Emergency Room Report ---
History of Present Illness General Chief Complaint: Toothache Source: Patient Present Illness HPI 35-year-old female with history of multiple dental caries presents to the ER with complaint of tooth pain x 2 days Patient called her dentist who states that her insurance was not up-to-date and was unable to see her. Denies fever, DIAZ, stridor, trismus, neck swelling, SOB, difficulty swallowing or other symptoms. The patient's symptoms were gradual onset, severity was moderate, duration since 2 days. Quality: aching Past medical history: dental carries Past surgical history: Denies Smoking: ++ Alcohol use: Denies Drug use: ++marijuana Review of systems: CONST: No fevers or chills, No night sweats PULMONARY: No productive cough, No shortness of breath CARDIAC: No chest pain, No palpitations GI: No vomiting, No diarrhea , No melena_or_BRBPR : No dysuria, No hematuria, No discharge NEURO: No new_focal_weakness_or_numbness, No confusion, No vision changes 14 point Review of Systems is otherwise negative except per HPI Physical Exam: GENERAL: Awake_alert_ nontoxic, no acute distress Spo2 99% on RA -normal EYES: Extraocular muscles are intact. Conjunctivae clear. Lids without swelling ENT: External nose and ear normal_in_appearance. Oropharynx clear. Head_atraumatic, Moist_oral_mucosa Poor dentition Multiple dental caries R lower molar dental fracture. no exposed pulp. No submandibular swelling or cellulitis Uvula midline. No stridor, hoarse voice or drooling Patient is eating a hamburger during exam NECK: No JVD. No meningismus. No thyromegaly. Supple. Trachea midline RESP: Normal respiratory effort. Symmetric rise. No stridor. Clear_to_auscultation_No_rales_No_wheezes CARDIAC: [Regular rate] and regular rhytm. No_significant pedal edema. ABDOMEN: Soft. Nondistended. Nontender_No_rebound_or_guarding. MSK: Normal muscle tone, without rigidity. Extremities without asymmetric deformity or swelling. SKIN: Warm and dry. No visible cyanosis or pallor NEUROLOGIC: Alert, oriented x[]. Motor_and_sensation_grossly_intact. No truncal ataxia. Gait_normal Psych: Normal mood and affect, normal judgment and insight - COORDINATION OF CARE Case was discussed with: Patient Medical Decision Making/Plan: DDx: dental fx vs dental kelvin vs periapical abscess No clinical evidence of elvie angina, deep space neck infection On clinical examination, patient has dental fracture with no exposed pulp on the right lower molar. No submandibular swelling or crepitus. No trismus appreciated. Doubt mastoiditis, meningitis, encephalitis, or deep s pace neck infection. Gave Augmentin and Decadron in ED Patient to follow-up with dentist this week for dental extraction Pertinent results reviewed with the patient. I educated the patient on the current treatment plan including the risks, benefits, and alternatives. I also discussed the extent and limitations of the current evaluation. The patient expressed understanding and agreement with plan. I recommended PMD follow-up within 1-2 days. Also advised that the patient return to the Emergency Department as soon as possible if they experience any new, persistent, or worsening symptoms. Allergies: Coded Allergies: No Known Allergies (Unverified , 01/07/17) COVID-19 Screening Contact w/high risk pt: No Experienced COVID-19 symptoms?: No COVID-19 Testing performed [employer]OPE [employer]NER: No Nursing Documentation-PMH Hx Cardiac Problems: No Hx Cancer: No Hx Gastrointestinal Problems: No Hx Neurological Problems: No Physical Exam Vital Signs Date Time Temp Pulse Resp B/P (MAP) Pulse Ox O2 Delivery O2 Flow Rate FiO2 03/09/20 04:52 98.4 86 18 115/68 (84) 99 Room Air Sp02 EP Interpretation: reviewed, normal Medical Decision Making Diagnostic Impression: Primary Impression: Dental caries of smooth surface Additional Impression: Dentalgia Last Vital Signs Date Time Temp Pulse Resp B/P (MAP) Pulse Ox O2 Delivery O2 Flow Rate FiO2 03/09/20 05:00 98.4 86 18 115/68 99 Room Air Disposition: HOME, SELF-CARE Admit Decision Time: 05:17 Condition: Stable Scripts Ibuprofen* (MOTRIN*) 600 Mg Tablet 600 MG ORAL THREE TIMES A DAY, #30 TAB Prov: Christiane Berger D.O. 03/09/20 Acetaminophen* (TYLENOL EXTRA STRENGTH*) 500 Mg Tablet 500 MG ORAL Q6H for 7 Days, #28 TAB Prov: Christiane Berger D.O. 03/09/20 Amoxicillin/Potassium Clav 875-125* (AUGMENTIN 875-125 TABLET*) 1 Each Tablet 1 TAB ORAL TWICE A DAY, #14 TAB Prov: Christiane Berger D.O. 03/09/20 Referrals: [facility](age 2-12) - Orthodontic Clinic - Hours: Mon,Fri,, 8:15am and 1pm (new patient screening), Tues. 1pm. Emergency clinic Friday - Friday 8:30am and 1pm, Tues. 1pm. *Call to check if clinic is open; No appointment necessary for the first visit (new patient screening), Arrive 15-30 minutes early as it is first come, first serve. [facility] INFO: New Patient Screening: Fri- 8am-1pm Fri- 9am -5pm and Fri 2pm-5pm Patient Instructions: Dental Pain Additional Instructions: Instructions for patient/electronic device repairer: Follow up with your physician in 1-2 days. Follow-up with your doctor sooner if your condition requires a more timely c linical reevaluation. Return to the emergency department immediately if you feel that your condition is worsening or if you have any new or concerning symptoms. Review your discharge instructions and take any prescriptions given as instructed. Follow-up with your dentist as scheduled for possible dental extraction Eat soft foods so as not to irritate your dental fracture [facility] PROVIDES FREE OR LOW-COST HEALTH SERVICES TO PEOPLE WHO CAN SHOW PROOF THAT THEY LIVE IN [facility]. TO FIND MORE CLINICS PARTNERED WITH THE [facility] TO PROVIDE SERVICE, PLEASE CALL . Christiane Berger D.O. Mar 09, 2020 05:18
[2020-03-09 05:20] VITALS: BP 115/68
== END 2020-03-09 05:20 | disposition home or self-care (01) ==
LOC: EMR 05:03
DX: K02.9 Dental caries, unspecified (principal); F17.200 Nicotine dependence, unspecified, uncomplicated
CPT/HCPCS: J8540; Z7502; 99282